=== PATIENT | female | born 1995 | race Caucasian/White ===

== ENCOUNTER 2017-11-16 02:28 | Inpatient (IN) | payer OTHER ==
[~2017-11-16] VITALS: Ht 162.6 cm; Wt 41.7 kg
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
[2017-11-16 03:11] LABS: ABSOLUTE BASOPHIL COUNT 0 /CUMM (0.0-0.2); ABSOLUTE EOSINOPHIL COUNT 0.1 /CUMM (0.0-0.7); ABSOLUTE GRANULOCYTE CT 4.4 /CUMM (1.4-6.5); ABSOLUTE MONOCYTE COUNT 0.7 /CUMM (0.10-0.60); BASOPHIL % 0.4 % (0.0-2.0); EOSINOPHIL % 1.8 % (0-5); GRANULOCYTE % 60.8 % (42.2-75.2); MEAN CORPUSCULAR HGB 31.7 PG (27.0-31.0); MEAN CORPUSCULAR VOLUME 93.3 FL (81.0-99.0); MEAN PLATELET VOLUME 8.6 FL (7.4-10.4); PLATELET COUNT 216 /CUMM (130-400); RBC DISTRIBUTION WIDTH 13.3 % (11.5-14.5); RED BLOOD CELL CT 4.51 /CUMM (4.20-5.40); WHITE BLOOD CELL COUNT 7.2 /CUMM (4.8-10.8)
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
[2017-11-16 05:35] LABS: PT 12.8 SEC (9.4-12.5); PTT 35 SEC (25-37)
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
[2017-11-16] MEDS ORDERED: CLONAZEPAM0.5 M2 PO (06:15)
[2017-11-16] MEDS ORDERED: SUBOXONE 8 MG-1 EACH SL (06:15)
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
[2017-11-16 11:06] VITALS: BP 90/52
[2017-11-16 14:29] VITALS: BP 98/52
[2017-11-16 16:57] VITALS: BP 92/60
[2017-11-16 19:17] VITALS: BP 86/52
[2017-11-16 21:37] VITALS: BP 82/56
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
[2017-11-16 23:08] VITALS: BP 100/64
[2017-11-17 01:10] VITALS: BP 100/60
[2017-11-17 02:47] VITALS: BP 94/60
[2017-11-17 04:47] VITALS: BP 98/58
[2017-11-17 06:37] VITALS: BP 94/60
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
[2017-11-17 09:23] LABS: ABSOLUTE BASOPHIL COUNT 0 /CUMM (0.0-0.2); ABSOLUTE EOSINOPHIL COUNT 0.1 /CUMM (0.0-0.7); ABSOLUTE GRANULOCYTE CT 4.9 /CUMM (1.4-6.5); ABSOLUTE LYMPH COUNT 1.8 /CUMM (1.2-3.4); ABSOLUTE MONOCYTE COUNT 0.8 /CUMM (0.10-0.60); BASOPHIL % 0.4 % (0.0-2.0); EOSINOPHIL % 1.9 % (0-5); GRANULOCYTE % 63.6 % (42.2-75.2); HEMATOCRIT 38.8 % (37-47); MEAN CORPUSCULAR HGB CONC 33.7 G/DL (33.0-37.0); MEAN CORPUSCULAR VOLUME 94.9 FL (81.0-99.0); MEAN PLATELET VOLUME 9.7 FL (7.4-10.4); PLATELET COUNT 158 /CUMM (130-400); RBC DISTRIBUTION WIDTH 13.5 % (11.5-14.5); RED BLOOD CELL CT 4.09 /CUMM (4.20-5.40); WHITE BLOOD CELL COUNT 7.7 /CUMM (4.8-10.8)
[2017-11-17 09:28] LABS: PT 13.8 SEC (9.4-12.5)
--- NOTE | 2017-11-17 12:53 | Incdntl Nt Psy ---
Incidental Note Notation: Pt is deeply unsleep, and unable to participate in an interview. We will see the patient tomorrow.
[2017-11-17 14:31] VITALS: BP 100/64
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
[2017-11-17 21:49] VITALS: BP 94/48
[2017-11-18] VITALS: BP 94/48
[2017-11-18 06:20] VITALS: BP 108/50
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
[2017-11-18 08:45] LABS: ABSOLUTE BASOPHIL COUNT 0 /CUMM (0.0-0.2); ABSOLUTE EOSINOPHIL COUNT 0.2 /CUMM (0.0-0.7); ABSOLUTE GRANULOCYTE CT 3.4 /CUMM (1.4-6.5); ABSOLUTE LYMPH COUNT 1.7 /CUMM (1.2-3.4); ABSOLUTE MONOCYTE COUNT 0.7 /CUMM (0.10-0.60); BASOPHIL % 0.3 % (0.0-2.0); EOSINOPHIL % 3.1 % (0-5); GRANULOCYTE % 57.4 % (42.2-75.2); MEAN CORPUSCULAR HGB 32.3 PG (27.0-31.0); MEAN CORPUSCULAR HGB CONC 34.4 G/DL (33.0-37.0); MEAN CORPUSCULAR VOLUME 93.9 FL (81.0-99.0); MEAN PLATELET VOLUME 10.1 FL (7.4-10.4); RBC DISTRIBUTION WIDTH 13.4 % (11.5-14.5); RED BLOOD CELL CT 4.15 /CUMM (4.20-5.40); WHITE BLOOD CELL COUNT 5.9 /CUMM (4.8-10.8)
[2017-11-18 10:00] VITALS: BP 101/80
[2017-11-18 10:21] LABS: PLATELET COUNT 137 /CUMM (130-400)
[2017-11-18] MEDS ORDERED: VITAMIN B-1100 MG PO ×2 (10:21→13:16)
[2017-11-18] MEDS ORDERED: FOLIC ACID1 M1 PO ×2 (10:21→13:16)
[2017-11-18] MEDS ORDERED: ONDANSETRON ODT4 M1 PO ×2 (10:21→13:16)
[2017-11-18] MEDS ORDERED: ONE DAILY MULT1 EAC2 PO ×2 (10:21→13:16)
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
== END 2017-11-18 14:31 | DRG 773 ==
LOC: ERH 02:28 → ERHI 07:05 → 2NA 07:05 → ENRESERV 09:52 → ENTRNSPT 10:37 → EDTRNSPTSTS 10:49 → EDTRNSPT 10:49 → 2NA 10:51 → CMPTRNSPT 11:06 → ENPENDDIS 11-18 10:30 → ENTRNSPT 11-18 13:45 → EDTRNSPTSTS 11-18 14:24 → EDTRNSPT 11-18 14:24 → CMPTRNSPT 11-18 14:28 → 2NA 11-18 14:31
PROVIDERS: Internal Medicine; Pediatrics; Student in an Organized Health Care Education/Training Program
DX: F10.929 Alcohol use, unspecified with intoxication, unspecified (principal); V47.5XXA Car driver injured in collision with fixed or stationary object in traffic accident, initial encounter; M79.1 Myalgia; R74.0 Nonspecific elevation of levels of transaminase and lactic acid dehydrogenase [LDH]; Y90.6 Blood alcohol level of 120-199 mg/100 ml; F11.20 Opioid dependence, uncomplicated; E87.0 Hyperosmolality and hypernatremia; E86.0 Dehydration; K75.9 Inflammatory liver disease, unspecified; K29.20 Alcoholic gastritis without bleeding; F17.210 Nicotine dependence, cigarettes, uncomplicated; F41.9 Anxiety disorder, unspecified; Z88.1 Allergy status to other antibiotic agents; B19.20 Unspecified viral hepatitis C without hepatic coma; F31.9 Bipolar disorder, unspecified; F91.3 Oppositional defiant disorder; Z91.5 Personal history of self-harm; W22.11XA Striking against or struck by driver side automobile airbag, initial encounter; Y92.410 Unspecified street and highway as the place of occurrence of the external cause
CPT/HCPCS: 2NAP; 36415; 36592; 73560-RT; 73590-RT; 73610-RT; 74176; 80307; 81001; 82436; 93005; 93010; 96360; 99232; G0480; J1650; J2405; J3101; J3490; J7040; J7042

== ENCOUNTER 2017-11-22 09:09 | Inpatient (IN) | payer OTHER ==
[~2017-11-22] VITALS: Ht 162.6 cm; Wt 50.0 kg
[~2017-11-22 09:09] MED LIST: CLONAZEPAM0.5 M2 PO; FOLIC ACID1 M1 PO; ONDANSETRON ODT4 M1 PO; ONE DAILY MULT1 EAC2 PO; SUBOXONE 8 MG-1 EACH SL; VITAMIN B-1100 MG PO
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
[2017-11-22 10:19] LABS: ABSOLUTE BASOPHIL COUNT 0.1 /CUMM (0.0-0.2); ABSOLUTE EOSINOPHIL COUNT 0.2 /CUMM (0.0-0.7); ABSOLUTE GRANULOCYTE CT 3.2 /CUMM (1.4-6.5); ABSOLUTE MONOCYTE COUNT 0.7 /CUMM (0.10-0.60); BASOPHIL % 0.9 % (0.0-2.0); GRANULOCYTE % 51.4 % (42.2-75.2); HEMATOCRIT 43.7 % (37-47); MEAN CORPUSCULAR HGB 31.8 PG (27.0-31.0); MEAN CORPUSCULAR HGB CONC 33.2 G/DL (33.0-37.0); MEAN CORPUSCULAR VOLUME 95.7 FL (81.0-99.0); MEAN PLATELET VOLUME 9.1 FL (7.4-10.4); RBC DISTRIBUTION WIDTH 13.9 % (11.5-14.5); RED BLOOD CELL CT 4.57 /CUMM (4.20-5.40); WHITE BLOOD CELL COUNT 6.2 /CUMM (4.8-10.8)
[2017-11-22 10:41] LABS: PLATELET COUNT 238 /CUMM (130-400)
--- NOTE | 2017-11-22 11:31 | CT SCAN REPORT ---
EXAMINATION: CT ABDOMEN AND PELVIS WITH CONTRAST CLINICAL INFORMATION: Right abdominal pain with rebound tenderness and guarding. COMPARISON: None TECHNIQUE: Multidetector volumetric imaging was performed of the abdomen and pelvis following IV administration of 65 mL of Optiray 350 intravenous contrast. Sagittal and coronal reformatted images were obtained on the technologist's workstation. DLP: 267.20 mGy-cm FINDINGS: LUNG BASES: The visualized lung bases are unremarkable. LIVER, GALLBLADDER, AND BILIARY TREE: The liver is normal in size, shape, and attenuation. No focal hepatic lesion or biliary ductal dilatation is present. The gallbladder is contracted, with no evidence of radiopaque gallstones, gallbladder wall thickening or obvious pericholecystic inflammatory changes. PANCREAS: Unremarkable. SPLEEN: Unremarkable, with a longitudinal span in the coronal plane of 10.7 cm (602:44) ADRENAL GLANDS: Unremarkable. KIDNEYS AND URETERS: The kidneys are normal in size, shape, and attenuation. No hydronephrosis, hydroureter, or calculi seen. No perinephric stranding. BLADDER: Decompressed and otherwise unremarkable. GASTROINTESTINAL TRACT: The small and large bowel are unremarkable. There is no obstruction, free intraperitoneal air or abscess. The vermiform appendix is suboptimally visualized, without finding to suggest appendicitis (3:510 through 543). No focal bowel wall thickening is seen. There is no significant diverticulosis or diverticulitis seen. ABDOMINAL WALL: No significant hernia is appreciated. LYMPH NODES: Normal. VASCULAR: Unremarkable. PELVIC VISCERA: The uterus and adnexa are unremarkable. Question tampon within the vaginal vault. OSSEOUS STRUCTURES: Unremarkable. IMPRESSION: Unremarkable examination, without obstruction, free intraperitoneal air or abscess seen. There is no appendicitis or diverticulitis seen. No urinary calculus or hydronephroureter is seen. There is no abdominopelvic mass, free fluid or lymphadenopathy.
[2017-11-22 12:44] LABS: PT 12.4 SEC (9.4-12.5); PTT 32 SEC (25-37)
[2017-11-22 14:00] VITALS: BP 126/80
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
--- NOTE | 2017-11-22 14:54 | Admission Certification ---
Admission Certification Certification Statement - As attending physician, I certify that at the time of - admission, based on clinical presentation, severity of - symptoms, need for further diagnostic testing and - therapeutic interventions, and risk of adverse outcomes - without in-hospital treatment, in my clinical assessment, - this patient requires an acute hospital stay for a minimum - of two nights or longer. I have also considered psychsocial - factors such as support system, advanced age, financial - issues, cognitive issues, and failed out-patient treatments, - past re-admission history, safety of patient, and lack of - compliance as applicable. Specific rationale supporting this admission is: Patient will require hospitalization for further management of her acute hepatitis.
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
[2017-11-22 20:00] VITALS: BP 105/65
[2017-11-23] VITALS (9 sets, daily range): BP systolic 94–122; BP diastolic 50–84
[2017-11-23 04:46] LABS: ABSOLUTE BASOPHIL COUNT 0.2 /CUMM (0.0-0.2); ABSOLUTE EOSINOPHIL COUNT 0.2 /CUMM (0.0-0.7); ABSOLUTE GRANULOCYTE CT 3.3 /CUMM (1.4-6.5); ABSOLUTE LYMPH COUNT 2.5 /CUMM (1.2-3.4); ABSOLUTE MONOCYTE COUNT 0.7 /CUMM (0.10-0.60); BASOPHIL % 2.6 % (0.0-2.0); EOSINOPHIL % 3.3 % (0-5); GRANULOCYTE % 47.9 % (42.2-75.2); HEMATOCRIT 39.7 % (37-47); MEAN CORPUSCULAR HGB 31.6 PG (27.0-31.0); MEAN CORPUSCULAR HGB CONC 33.1 G/DL (33.0-37.0); MEAN CORPUSCULAR VOLUME 95.4 FL (81.0-99.0); MEAN PLATELET VOLUME 10.7 FL (7.4-10.4); PLATELET COUNT 148 /CUMM (130-400); RBC DISTRIBUTION WIDTH 13.9 % (11.5-14.5); RED BLOOD CELL CT 4.16 /CUMM (4.20-5.40); WHITE BLOOD CELL COUNT 6.9 /CUMM (4.8-10.8)
[2017-11-23 04:50] LABS: PT 14.8 SEC (9.4-12.5)
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
--- NOTE | 2017-11-23 13:56 | PN- Gastroenterology ---
Assessment/Plan GI Assessment/Recommendations: ASSESSMENT: 1. History of Substance Abuse 2. Acute Liver Injury -- ? Tylenol Toxicity in the setting of alcohol abuse, ? DILI due to Suboxone 3. Elevated Transaminases -- ? etiology due due tylenol, suboxone, ? element of shock liver, but no documented hypotension 4. History of Alcohol Abuse 5. Coagulopathy RECOMMENDATIONS: 1. Would continue N-acetylcysteine up to 72 hours at reduced dose since coags are trending upwards 2. Continue to hold suboxone 3. Regular diet 4. If change in mental status or persistent increasing PT-INR will consider transfer to [facility] Subjective Subjective: Patient is fatigued. She has had no change in her sleep wake cycle. She reports no diminution in her motor skills. She denies nausea vomiting although she does have some mild diffuse upper abdominal discomfort. Objective Vital Signs and I&Os Vital Signs Date Time Temp Pulse Resp B/P B/P Pulse O2 O2 Flow FiO2 Mean Ox Delivery Rate 11/23 1200 97.6 60 20 100/50 11/23 0800 97.1 56 15 94/60 97 Room Air 11/23 0600 60 16 110/61 11/23 0400 52 18 104/60 11/23 0400 98 Room Air 11/23 0200 48 20 103/58 11/23 0000 9.0 67 16 100/53 11/23 0000 98 Room Air 11/23 0000 97.0 67 16 100/53 98 Room Air 11/22 2000 97.8 58 24 105/65 11/22 1400 98.7 68 11 126/80 99 Room Air 11/22 1352 97.7 62 18 105/62 98 Room Air Intake & Output 11/23 1600 11/23 0400 11/22 1600 11/22 0400 11/21 1600 11/21 0400 Intake Total 1277 1628 250 Output Total 1075 1400 0 Balance 202 228 250 Intake, IV 1227 1508 250 Intake, Oral 50 120 0 Number 0 0 Bowel Movements Output, Urine 1075 1400 0 Patient 91 lb 15.98 oz 92 lb Weight Weight Reported by Patient Measurement Method Physical Exam General Appearance: no apparent distress, alert, awake Cardiovascular: regular rate/rhythm Abdomen: normal bowel sounds, soft, non-tender, no organomegaly Neurologic/Psychiatric: no motor/sensory deficits, alert, oriented x 3 Current Medications: Current Medications Sig/Ravinder Start time Last Medication Dose Route Stop Time Status Admin Acetylcysteine 4,173 MG ONCE ONE 11/22 1800 DC 11/22 Dextrose/Water 1,000 ML IV 11/23 1020 1910 Acetylcysteine 2,086.5 MG ONCE ONE 11/22 1400 DC 11/22 Dextrose/Water 500 ML IV 11/22 1804 1420 Buprenorphine/ 1 TAB BID 11/22 2100 CAN Naloxone SL Clonazepam 0.5 MG TID 11/22 2100 AC 11/23 PO 11/29 205 1300 Enoxaparin Sodium 40 MG DAILY 11/23 0900 CAN SC Folic Acid 1 MG DAILY 11/23 0900 AC 11/23 PO 0831 Heparin Sodium 5,000 UNIT Q8 11/22 1522 AC (Porcine) SC Multivitamins 1 TAB DAILY 11/23 09 AC 11/23 PO 0831 Nicotine 21 MG Q24 11/23 0900 AC 11/23 TOP 1017 Sodium Chloride 1,000 ML Q10H 11/22 1530 DC 11/23 IV 11/23 1129 0155 Thiamine HCl 100 MG DAILY 11/23 0900 AC 11/23 PO 0831 Tramadol HCl 50 MG ONCE ONE 11/23 0200 DC 11/23 PO 11/23 0201 0153 Tramadol HCl 50 MG ONCE ONE 11/22 2030 DC 11/22 PO 11/22 203 203 Tramadol HCl 50 MG ONCE ONE 11/22 1500 DC 11/22 PO 11/22 1501 1519 Results Pertinent Lab Results: Laboratory Tests 11/23 11/23 0355 0355 Chemistry Sodium (137 - 145 mmol/L) 140 Potassium (3.5 - 5.1 mmol/L) 3.7 Chloride (98 - 107 mmol/L) 110 H Carbon Dioxide (22 - 30 mmol/L) 24 Anion Gap (5 - 16) 6 BUN (7 - 17 mg/dL) 3 L Creatinine (0.5 - 1.0 mg/dL) 0.4 L Estimated GFR (>60 ml/min) > 60 Glucose (65 - 99 mg/dL) 98 Calcium (8.4 - 10.2 mg/dL) 8.9 Phosphorus (2.5 - 4.5 mg/dL) 3.8 Magnesium (1.6 - 2.3 mg/dL) 1.7 Total Bilirubin (0.2 - 1.3 mg/dL) 2.8 H AST (14 - 36 U/L) 699 H ALT (9 - 52 U/L) 1104 H Albumin (3.5 - 5.0 g/dL) 3.0 L Coagulation PT (9.4 - 12.5 SEC) 14.8 H INR (0.90 - 1.19) 1.35 H Hematology CBC w Diff NO MAN DIFF REQ WBC (4.8 - 10.8 /CUMM) 6.9 RBC (4.20 - 5.40 /CUMM) 4.16 L Hgb (12.0 - 16.0 G/DL) 13.1 Hct (37 - 47 %) 39.7 MCV (81.0 - 99.0 FL) 95.4 MCH (27.0 - 31.0 PG) 31.6 H MCHC (33.0 - 37.0 G/DL) 33.1 RDW (11.5 - 14.5 %) 13.9 Plt Count (130 - 400 /CUMM) 148 MPV (7.4 - 10.4 FL) 10.7 H Gran % (42.2 - 75.2 %) 47.9 Lymphocytes % (20.5 - 51.1 %) 35.8 Monocytes % (1.7 - 9.3 %) 10.4 H Eosinophils % (0 - 5 %) 3.3 Basophils % (0.0 - 2.0 %) 2.6 H Absolute Granulocytes (1.4 - 6.5 /CUMM) 3.3 Absolute Lymphocytes (1.2 - 3.4 /CUMM) 2.5 Absolute Monocytes (0.10 - 0.60 /CUMM) 0.7 H Absolute Eosinophils (0.0 - 0.7 /CUMM) 0.2 Absolute Basophils (0.0 - 0.2 /CUMM) 0.2 Immunology IMTIAZ Titer ND Anti-Nuclear Antibody (NEG,1:40) NEG 1:40 IFA ASSAY Anti-Smooth Muscle Ab Pending Serology HCV RNA (PCR) IUs/ml Pending HCV RNA PCR log IUs/ml Pending 11/22 11/22 1018 1010 Chemistry Total Beta HCG Cancelled Toxicology Urine Opiates Screen (>2000 NG/ML) < 100 Methadone Screen (>300 NG/ML) < 40 Barbiturate Screen (>200 NG/ML) < 60 Ur Phencyclidine Scrn (>25 NG/ML) < 6.00 Amphetamines Screen (>1000 NG/ML) < 100 U Benzodiazepines Scrn (>200 NG/ML) 123 Urine Cocaine Screen (>300 NG/ML) < 50 Urine Cannabis Screen (>50 NG/ML) > 80.00 H Urines Urinalysis MANY H Urine Color (YEL,AMB,STR) ESTELLA Urine Clarity (CLEAR) HAZY H Urine pH (5.0 - 8.0) 7.0 Ur Specific [place] (1.001 - 1.035) 1.020 Urine Protein (NEG,<30 MG/DL) NEG Urine Ketones (NEG) NEG Urine Nitrite (NEG) NEG Urine Bilirubin (NEG) POS@ICTO H Urine Urobilinogen (0.1 - 1.0 EU/dl) 4.0 H Ur Leukocyte Esterase (NEG) NEG Ur Microscopic SEDIMENT EXAMINED Urine RBC (0 - 5 /HPF) RARE Urine WBC (0 - 2 /HPF) RARE Ur Epithelial Cells (NONE,FEW) RARE Urine Mucus (FEW,NONE) RARE Urine Hemoglobin (NEG) NEG Urine Glucose (N MG/DL) NEG 11/22 1010 Chemistry Sodium (137 - 145 mmol/L) 144 Potassium (3.5 - 5.1 mmol/L) 4.1 Chloride (98 - 107 mmol/L) 103 Carbon Dioxide (22 - 30 mmol/L) 30 Anion Gap (5 - 16) 11 BUN (7 - 17 mg/dL) 8 Creatinine (0.5 - 1.0 mg/dL) 0.7 Estimated GFR (>60 ml/min) > 60 BUN/Creatinine Ratio (7 - 25 %) 11.4 Glucose (65 - 99 mg/dL) 96 Calcium (8.4 - 10.2 mg/dL) 9.4 Total Bilirubin (0.2 - 1.3 mg/dL) 2.8 H AST (14 - 36 U/L) 957 H ALT (9 - 52 U/L) 1359 H Alkaline Phosphatase (<127 U/L) 124 Creatine Kinase (30 - 135 U/L) 42 Total Protein (6.3 - 8.2 g/dL) 6.5 Albumin (3.5 - 5.0 g/dL) 3.8 Globulin (1.9 - 4.2 gm/dL) 2.7 Albumin/Globulin Ratio (1.1 - 2.2 %) 1.4 Lipase (23 - 300 U/L) 94 Total Beta HCG (NEGATIVE) NEGATIVE Coagulation PT (9.4 - 12.5 SEC) 12.4 INR (0.90 - 1.19) 1.14 APTT (25 - 37 SEC) 32 Hematology CBC w Diff NO MAN DIFF REQ WBC (4.8 - 10.8 /CUMM) 6.2 RBC (4.20 - 5.40 /CUMM) 4.57 Hgb (12.0 - 16.0 G/DL) 14.5 Hct (37 - 47 %) 43.7 MCV (81.0 - 99.0 FL) 95.7 MCH (27.0 - 31.0 PG) 31.8 H MCHC (33.0 - 37.0 G/DL) 33.2 RDW (11.5 - 14.5 %) 13.9 Plt Count (130 - 400 /CUMM) 238 MPV (7.4 - 10.4 FL) 9.1 Gran % (42.2 - 75.2 %) 51.4 Lymphocytes % (20.5 - 51.1 %) 32.4 Monocytes % (1.7 - 9.3 %) 11.3 H Eosinophils % (0 - 5 %) 4.0 Basophils % (0.0 - 2.0 %) 0.9 Absolute Granulocytes (1.4 - 6.5 /CUMM) 3.2 Absolute Lymphocytes (1.2 - 3.4 /CUMM) 2.0 Absolute Monocytes (0.10 - 0.60 /CUMM) 0.7 H Absolute Eosinophils (0.0 - 0.7 /CUMM) 0.2 Absolute Basophils (0.0 - 0.2 /CUMM) 0.1 Toxicology Acetaminophen (10.0 - 30.0 ug/mL) < 10.0 L Serum Alcohol (<10 MG/DL) < 10.0
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
[2017-11-24 06:00] VITALS: BP 110/68
[2017-11-24 07:05] VITALS: BP 100/54
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
[2017-11-24 07:59] LABS: ABSOLUTE BASOPHIL COUNT 0.1 /CUMM (0.0-0.2); ABSOLUTE EOSINOPHIL COUNT 0.2 /CUMM (0.0-0.7); ABSOLUTE GRANULOCYTE CT 3.6 /CUMM (1.4-6.5); ABSOLUTE LYMPH COUNT 2.2 /CUMM (1.2-3.4); ABSOLUTE MONOCYTE COUNT 0.7 /CUMM (0.10-0.60); BASOPHIL % 0.8 % (0.0-2.0); GRANULOCYTE % 53.7 % (42.2-75.2); HEMATOCRIT 41.7 % (37-47); MEAN CORPUSCULAR HGB 31.4 PG (27.0-31.0); MEAN CORPUSCULAR VOLUME 95.1 FL (81.0-99.0); MEAN PLATELET VOLUME 10.3 FL (7.4-10.4); PLATELET COUNT 185 /CUMM (130-400); RBC DISTRIBUTION WIDTH 13.9 % (11.5-14.5); RED BLOOD CELL CT 4.38 /CUMM (4.20-5.40); WHITE BLOOD CELL COUNT 6.7 /CUMM (4.8-10.8)
[2017-11-24 08:56] LABS: PT 14.6 SEC (9.4-12.5)
--- NOTE | 2017-11-24 11:37 | PN- Student ---
Alina Salazar 11/24/17 1112: Subjective Subjective: Pt is a 22yo F who presented to ED with pain in abdomen and a psych consult was requested. Pt reports that she "wants to go home." Pt has a history of cutting, November 2016, due to a fight with her girlfriend. Pt noted today that she has some thoughts of hurting herself when upset. Notes that she is currently seeing Dr. Reyes in [place] since Apr 2017. She was previously at [facility] in May 2017 for substance abuse treatment. Notes past heroin use, started in 2016, stopped 3 months ago, with daily use of 2-3 bundles; past cocaine use started in 2016, stopped a year ago, daily use of unspecified "less" amount; past crack cocaine use started in 2016, stopped 3 months ago, daily use of $400 value. Pt's father had a suicide attempt following divorce, with a hx of depression and anxiety. Pt 's mother has a hx of depression and anxiety. Pt's sister has a hx of depression , anxiety, and bipolar. Pt has 4 brothers she notes as "fine". Paternal grandmother had schizophrenia. Pt currently lives in [place] with her mother. Supports include mother and girlfriend, however reports fighting with her girlfriend a lot. Pt "dropped out 6 months away from finishing" high school. 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 Pt has 2 prior arrests from last year, 1 for assault, trespassing, and assault with a deadly weapon, the other [place] because "boys were making kissy faces". Patient is alert, cooperative, and oriented to person, place, and time. She appeared tired and restless, fidgeting under her blanket, but was attentive during the interview. Behavior was appropriate for the situation. Speech was normal rate, quiet volume. Patient showed poor insight and judgment, and reported SI, wanting to hurt herself because she wants to go home. Her affect was congruent with her mood. She reports mood as "sad". Denies HI, AH/VH, delusions, paranoia. Reports sad mood 9/10, anxiety 10/10, depression 8/10 (with 10 as most severe). Feels hopeless, helpless, worthless, and somewhat guilty. Reports "no sleep", which is her usual depending on her mood. Describes appetite as "poor" and energy as "low." Patient was interested in outpatient services and a rehab program for substance and alcohol abuse. Objective Objective: Current Medications Sig/Ravinder Start time Last Medication Dose Route Stop Time Status Admin Acetylcysteine 6,000 MG Q24H 11/23 1500 AC 11/23 Dextrose/Water 1,000 ML IV 11/25 1459 1653 Clonazepam 0.5 MG TID 11/22 2100 AC 11/24 PO 11/299 0947 Folic Acid 1 MG DAILY 11/23 09 AC 11/24 PO 0947 Gabapentin 300 MG Q8 11/24 0836 AC PO Heparin Sodium 5,000 UNIT Q8 11/22 1522 AC (Porcine) SC Morphine Sulfate 1 MG ONCE ONE 11/23 1630 DC 11/23 IV 11/23 1631 1625 Multivitamins 1 TAB DAILY 11/23 09 AC 11/24 PO 0946 Nicotine 21 MG Q24 11/23 09 AC 11/24 TOP 0947 Thiamine HCl 100 MG DAILY 11/23 0900 AC 11/24 PO 0947 Tramadol HCl 50 MG ONCE ONE 11/23 2315 DC 11/23 PO 11/23 2316 2315 Laboratory Tests 11/24 11/23 0650 0355 Chemistry Sodium (137 - 145 mmol/L) 142 Potassium (3.5 - 5.1 mmol/L) 3.5 Chloride (98 - 107 mmol/L) 105 Carbon Dioxide (22 - 30 mmol/L) 26 Anion Gap (5 - 16) 11 BUN (7 - 17 mg/dL) 6 L Creatinine (0.5 - 1.0 mg/dL) 0.5 Estimated GFR (>60 ml/min) > 60 BUN/Creatinine Ratio (7 - 25 %) 12.0 Phosphorus (2.5 - 4.5 mg/dL) 4.7 H Magnesium (1.6 - 2.3 mg/dL) 1.8 Total Bilirubin (0.2 - 1.3 mg/dL) 3.5 H Direct Bilirubin (< 0.4 mg/dL) 2.6 H AST (14 - 36 U/L) 768 H ALT (9 - 52 U/L) 1235 H Alkaline Phosphatase (<127 U/L) 114 Total Protein (6.3 - 8.2 g/dL) 6.1 L Albumin (3.5 - 5.0 g/dL) 3.4 L Coagulation PT (9.4 - 12.5 SEC) 14.6 H INR (0.90 - 1.19) 1.34 H Hematology CBC w Diff NO MAN DIFF REQ WBC (4.8 - 10.8 /CUMM) 6.7 RBC (4.20 - 5.40 /CUMM) 4.38 Hgb (12.0 - 16.0 G/DL) 13.8 Hct (37 - 47 %) 41.7 MCV (81.0 - 99.0 FL) 95.1 MCH (27.0 - 31.0 PG) 31.4 H MCHC (33.0 - 37.0 G/DL) 33.0 RDW (11.5 - 14.5 %) 13.9 Plt Count (130 - 400 /CUMM) 185 MPV (7.4 - 10.4 FL) 10.3 Gran % (42.2 - 75.2 %) 53.7 Lymphocytes % (20.5 - 51.1 %) 32.8 Monocytes % (1.7 - 9.3 %) 9.7 H Eosinophils % (0 - 5 %) 3.0 Basophils % (0.0 - 2.0 %) 0.8 Absolute Granulocytes (1.4 - 6.5 /CUMM) 3.6 Absolute Lymphocytes (1.2 - 3.4 /CUMM) 2.2 Absolute Monocytes (0.10 - 0.60 /CUMM) 0.7 H Absolute Eosinophils (0.0 - 0.7 /CUMM) 0.2 Absolute Basophils (0.0 - 0.2 /CUMM) 0.1 Immunology Anti-Smooth Muscle Ab Pending 11/23 0375 Chemistry Sodium (137 - 145 mmol/L) 140 Potassium (3.5 - 5.1 mmol/L) 3.7 Chloride (98 - 107 mmol/L) 110 H Carbon Dioxide (22 - 30 mmol/L) 24 Anion Gap (5 - 16) 6 BUN (7 - 17 mg/dL) 3 L Creatinine (0.5 - 1.0 mg/dL) 0.4 L Estimated GFR (>60 ml/min) > 60 Glucose (65 - 99 mg/dL) 98 Calcium (8.4 - 10.2 mg/dL) 8.9 Phosphorus (2.5 - 4.5 mg/dL) 3.8 Magnesium (1.6 - 2.3 mg/dL) 1.7 Total Bilirubin (0.2 - 1.3 mg/dL) 2.8 H AST (14 - 36 U/L) 699 H ALT (9 - 52 U/L) 1104 H Albumin (3.5 - 5.0 g/dL) 3.0 L Coagulation PT (9.4 - 12.5 SEC) 14.8 H INR (0.90 - 1.19) 1.35 H Hematology CBC w Diff NO MAN DIFF REQ WBC (4.8 - 10.8 /CUMM) 6.9 RBC (4.20 - 5.40 /CUMM) 4.16 L Hgb (12.0 - 16.0 G/DL) 13.1 Hct (37 - 47 %) 39.7 MCV (81.0 - 99.0 FL) 95.4 MCH (27.0 - 31.0 PG) 31.6 H MCHC (33.0 - 37.0 G/DL) 33.1 RDW (11.5 - 14.5 %) 13.9 Plt Count (130 - 400 /CUMM) 148 MPV (7.4 - 10.4 FL) 10.7 H Gran % (42.2 - 75.2 %) 47.9 Lymphocytes % (20.5 - 51.1 %) 35.8 Monocytes % (1.7 - 9.3 %) 10.4 H Eosinophils % (0 - 5 %) 3.3 Basophils % (0.0 - 2.0 %) 2.6 H Absolute Granulocytes (1.4 - 6.5 /CUMM) 3.3 Absolute Lymphocytes (1.2 - 3.4 /CUMM) 2.5 Absolute Monocytes (0.10 - 0.60 /CUMM) 0.7 H Absolute Eosinophils (0.0 - 0.7 /CUMM) 0.2 Absolute Basophils (0.0 - 0.2 /CUMM) 0.2 Immunology IMTIAZ Titer ND Anti-Nuclear Antibody (NEG,1:40) NEG 1:40 IFA ASSAY Serology HCV RNA (PCR) IUs/ml Pending HCV RNA PCR log IUs/ml Pending 11/22 11/22 1018 1010 Chemistry Total Beta HCG Cancelled Toxicology Urine Opiates Screen (>2000 NG/ML) < 100 Methadone Screen (>300 NG/ML) < 40 Barbiturate Screen (>200 NG/ML) < 60 Ur Phencyclidine Scrn (>25 NG/ML) < 6.00 Amphetamines Screen (>1000 NG/ML) < 100 U Benzodiazepines Scrn (>200 NG/ML) 123 Urine Cocaine Screen (>300 NG/ML) < 50 Urine Cannabis Screen (>50 NG/ML) > 80.00 H Urines Urinalysis MANY H Urine Color (YEL,AMB,STR) ESTELLA Urine Clarity (CLEAR) HAZY H Urine pH (5.0 - 8.0) 7.0 Ur Specific [place] (1.001 - 1.035) 1.020 Urine Protein (NEG,<30 MG/DL) NEG Urine Ketones (NEG) NEG Urine Nitrite (NEG) NEG Urine Bilirubin (NEG) POS@ICTO H Urine Urobilinogen (0.1 - 1.0 EU/dl) 4.0 H Ur Leukocyte Esterase (NEG) NEG Ur Microscopic SEDIMENT EXAMINED Urine RBC (0 - 5 /HPF) RARE Urine WBC (0 - 2 /HPF) RARE Ur Epithelial Cells (NONE,FEW) RARE Urine Mucus (FEW,NONE) RARE Urine Hemoglobin (NEG) NEG Urine Glucose (N MG/DL) NEG 11/22 1010 Chemistry Sodium (137 - 145 mmol/L) 144 Potassium (3.5 - 5.1 mmol/L) 4.1 Chloride (98 - 107 mmol/L) 103 Carbon Dioxide (22 - 30 mmol/L) 30 Anion Gap (5 - 16) 11 BUN (7 - 17 mg/dL) 8 Creatinine (0.5 - 1.0 mg/dL) 0.7 Estimated GFR (>60 ml/min) > 60 BUN/Creatinine Ratio (7 - 25 %) 11.4 Glucose (65 - 99 mg/dL) 96 Calcium (8.4 - 10.2 mg/dL) 9.4 Total Bilirubin (0.2 - 1.3 mg/dL) 2.8 H AST (14 - 36 U/L) 957 H ALT (9 - 52 U/L) 1359 H Alkaline Phosphatase (<127 U/L) 124 Creatine Kinase (30 - 135 U/L) 42 Total Protein (6.3 - 8.2 g/dL) 6.5 Albumin (3.5 - 5.0 g/dL) 3.8 Globulin (1.9 - 4.2 gm/dL) 2.7 Albumin/Globulin Ratio (1.1 - 2.2 %) 1.4 Lipase (23 - 300 U/L) 94 Total Beta HCG (NEGATIVE) NEGATIVE Coagulation PT (9.4 - 12.5 SEC) 12.4 INR (0.90 - 1.19) 1.14 APTT (25 - 37 SEC) 32 Hematology CBC w Diff NO MAN DIFF REQ WBC (4.8 - 10.8 /CUMM) 6.2 RBC (4.20 - 5.40 /CUMM) 4.57 Hgb (12.0 - 16.0 G/DL) 14.5 Hct (37 - 47 %) 43.7 MCV (81.0 - 99.0 FL) 95.7 MCH (27.0 - 31.0 PG) 31.8 H MCHC (33.0 - 37.0 G/DL) 33.2 RDW (11.5 - 14.5 %) 13.9 Plt Count (130 - 400 /CUMM) 238 MPV (7.4 - 10.4 FL) 9.1 Gran % (42.2 - 75.2 %) 51.4 Lymphocytes % (20.5 - 51.1 %) 32.4 Monocytes % (1.7 - 9.3 %) 11.3 H Eosinophils % (0 - 5 %) 4.0 Basophils % (0.0 - 2.0 %) 0.9 Absolute Granulocytes (1.4 - 6.5 /CUMM) 3.2 Absolute Lymphocytes (1.2 - 3.4 /CUMM) 2.0 Absolute Monocytes (0.10 - 0.60 /CUMM) 0.7 H Absolute Eosinophils (0.0 - 0.7 /CUMM) 0.2 Absolute Basophils (0.0 - 0.2 /CUMM) 0.1 Toxicology Acetaminophen (10.0 - 30.0 ug/mL) < 10.0 L Serum Alcohol (<10 MG/DL) < 10.0 Results Results: Laboratory Tests 11/24/17 0650: Anion Gap 11, Estimated GFR > 60, BUN/Creatinine Ratio 12.0, Phosphorus 4.7 H, Magnesium 1.8, Total Bilirubin 3.5 H, Direct Bilirubin 2.6 H, AST 768 H, ALT 1235 H, Alkaline Phosphatase 114, Total Protein 6.1 L, Albumin 3.4 L, PT 14.6 H, INR 1.34 H, CBC w Diff NO MAN DIFF REQ, RBC 4.38, MCV 95.1, MCH 31.4 H, MCHC 33.0, RDW 13.9, MPV 10.3, Gran % 53.7, Lymphocytes % 32.8, Monocytes % 9.7 H, Eosinophils % 3.0, Basophils % 0.8, Absolute Granulocytes 3.6, Absolute Lymphocytes 2.2, Absolute Monocytes 0.7 H, Absolute Eosinophils 0.2, Absolute Basophils 0.1 11/23/17 035: Anti-Smooth Muscle Ab Pending 11/23/17 035: Anion Gap 6, Estimated GFR > 60, Glucose 98, Calcium 8.9, Phosphorus 3.8, Magnesium 1.7, Total Bilirubin 2.8 H, AST 699 H, ALT 1104 H, Albumin 3.0 L, PT 14.8 H, INR 1.35 H, CBC w Diff NO MAN DIFF REQ, RBC 4.16 L, MCV 95.4, MCH 31.6 H, MCHC 33.1, RDW 13.9, MPV 10.7 H, Gran % 47.9, Lymphocytes % 35.8, Monocytes % 10.4 H, Eosinophils % 3.3, Basophils % 2.6 H, Absolute Granulocytes 3.3, Absolute Lymphocytes 2.5, Absolute Monocytes 0.7 H, Absolute Eosinophils 0.2, Absolute Basophils 0.2, IMTIAZ Titer ND, Anti-Nuclear Antibody NEG 1:40 IFA ASSAY, HCV RNA (PCR) IUs/ml Pending, HCV RNA PCR log IUs/ml Pending 11/22/17 1018: Urine Opiates Screen < 100, Methadone Screen < 40, Barbiturate Screen < 60, Ur Phencyclidine Scrn < 6.00, Amphetamines Screen < 100, U Benzodiazepines Scrn 123 , Urine Cocaine Screen < 50, Urine Cannabis Screen > 80.00 H, Urinalysis MANY H, Urine Color ESTELLA, Urine Clarity HAZY H, Urine pH 7.0, Ur Specific [place] 1.020, Urine Protein NEG, Urine Ketones NEG, Urine Nitrite NEG, Urine Bilirubin POS@ICTO H, Urine Urobilinogen 4.0 H, Ur Leukocyte Esterase NEG, Ur Microscopic SEDIMENT EXAMINED, Urine RBC RARE, Urine WBC RARE, Ur Epithelial Cells RARE, Urine Mucus RARE, Urine Hemoglobin NEG, Urine Glucose NEG 11/22/17 1010: Total Beta HCG Cancelled 11/22/17 1010: Anion Gap 11, Estimated GFR > 60, BUN/Creatinine Ratio 11.4, Glucose 96, Calcium 9.4, Total Bilirubin 2.8 H, AST 957 H, ALT 1359 H, Alkaline Phosphatase 124, Creatine Kinase 42, Total Protein 6.5, Albumin 3.8, Globulin 2.7, Albumin/ Globulin Ratio 1.4, Lipase 94, Total Beta HCG NEGATIVE, PT 12.4, INR 1.14, APTT 32, CBC w Diff NO MAN DIFF REQ, RBC 4.57, MCV 95.7, MCH 31.8 H, MCHC 33.2, RDW 13.9, MPV 9.1, Gran % 51.4, Lymphocytes % 32.4, Monocytes % 11.3 H, Eosinophils % 4.0, Basophils % 0.9, Absolute Granulocytes 3.2, Absolute Lymphocytes 2.0, Absolute Monocytes 0.7 H, Absolute Eosinophils 0.2, Absolute Basophils 0.1, Acetaminophen < 10.0 L, Serum Alcohol < 10.0 Microbiology 11/22 145 UPPER RESP: Surveillance Culture - COMP 11/22 1449 GI: Surveillance Culture - COMP Assessment/Plan Assessment: Pt is a 22 yo female with abdominal pain, depression, and anxiety, with a history of substance abuse and SI, with 1 episode of cutting. Pt reports wanting to hurt self, but not kill self because she wants to be discharged. Pt was calm and cooperative. Pt was alert, but tired, and Ox3. Denies HI, AH,VH, no delusions or paranoia. Plan: Pt is interested in aftercare, including mental health and substance use, and would like to continue to discuss the possibilities with social work for inpatient rehab vs. outpatient services.
[2017-11-24 12:42] VITALS: BP 110/62
[2017-11-24 14:11] VITALS: BP 98/62
[2017-11-24 16:17] VITALS: BP 92/44
--- NOTE | 2017-11-24 16:40 | PN- Gastroenterology ---
Assessment/Plan GI Assessment/Recommendations: ASSESSMENT: 1. History of Substance Abuse 2. Acute Liver Injury -- ? Tylenol Toxicity in the setting of alcohol abuse, ? DILI due to Suboxone 3. Elevated Transaminases -- ? etiology due due tylenol, suboxone, ? element of shock liver, but no documented hypotension 4. History of Alcohol Abuse 5. Coagulopathy RECOMMENDATIONS: 1. Would continue N-acetylcysteine up to 72 hours at reduced dose since coags are not trending downwards 2. Continue to hold suboxone 3. Regular diet 4. If change in mental status or persistent increasing PT-INR will consider transfer to [facility] 5. Discussed with patient that if there is no change in level of transaminitis would consider liver biopsy for further elucidation 6. Would check anti-LKM to rule out autoimmune hepatitis, ceruloplasmin to rule out Jung's, alpha-1 antitrypsin, hepatitis E antibody as well as iron studies to rule out other inherited, autoimmune and infectious causes of acute liver failure. Subjective Subjective: Patient doing well. No nausea vomiting or abdominal pain. No melena nor bright red blood per rectum. Objective Vital Signs and I&Os Vital Signs Date Time Temp Pulse Resp B/P B/P Pulse O2 O2 Flow FiO2 Mean Ox Delivery Rate 11/24 1617 97.9 62 18 92/44 96 Room Air 11/24 1411 97.9 51 20 98/62 96 Room Air 11/24 1242 98.7 58 18 110/62 98 Room Air 11/24 0705 97.5 56 12 100/54 98 Room Air 11/24 0600 98.2 72 16 110/68 11/23 2159 Room Air 11/23 2149 98.2 69 21 116/84 97 11/23 2000 97.8 61 18 122/60 Intake & Output 11/24 1600 11/24 0400 11/23 1600 11/23 0400 11/22 1600 11/22 0400 Intake Total 1168 41 3277 1628 250 Output Total 300 3075 1400 0 Balance 1168 -259 202 228 250 Intake, IV 946 01 7269 1508 250 Intake, Oral 540 850 120 0 Number 0 0 Bowel Movements Output, Urine 300 3075 1400 0 Patient 101 lb 91 lb 15.98 oz 92 lb Weight Weight Reported by Patient Measurement Method Physical Exam General Appearance: alert, awake, comfortable Respiratory: lungs clear Cardiovascular: regular rate/rhythm Abdomen: normal bowel sounds, soft, non-tender Neurologic/Psychiatric: no motor/sensory deficits, alert, oriented x 3, normal mood/affect Skin: jaundice Current Medications: Current Medications Sig/Ravinder Start time Last Medication Dose Route Stop Time Status Admin Acetylcysteine 6,000 MG Q24H 11/23 1500 AC 11/24 Dextrose/Water 1,000 ML IV 11/25 1459 1612 Buprenorphine/ 1 TAB ONCE ONE 11/24 1230 DC 11/24 Naloxone SL 11/24 1231 1240 Clonazepam 0.5 MG BID 11/24 2100 AC PO 12/01 2058 Clonazepam 0.5 MG TID 11/22 2100 DC 11/24 PO 11/29 205 1426 Folic Acid 1 MG DAILY 11/23 09 AC 11/24 PO 0947 Gabapentin 300 MG ONCE ONE 11/24 1645 UNVr PO 11/24 1646 Gabapentin 300 MG Q8 11/24 0836 AC 11/24 PO 1426 Heparin Sodium 5,000 UNIT Q8 11/22 1522 AC (Porcine) SC Multivitamins 1 TAB DAILY 11/23 09 AC 11/24 PO 0946 Nicotine 21 MG Q24 11/23 0900 AC 11/24 TOP 0947 Phytonadione 5 MG ONCE ONE 11/24 1230 DC 11/24 PO 11/24 1231 1240 Thiamine HCl 100 MG DAILY 11/23 899 AC 11/24 PO 0947 Tramadol HCl 50 MG ONCE ONE 11/23 2315 DC 11/23 PO 11/23 2316 2315 Results Pertinent Lab Results: Laboratory Tests 11/24 11/24 11/23 0650 0600 0355 Chemistry Sodium (137 - 145 mmol/L) 142 Potassium (3.5 - 5.1 mmol/L) 3.5 Chloride (98 - 107 mmol/L) 105 Carbon Dioxide (22 - 30 mmol/L) 26 Anion Gap (5 - 16) 11 BUN (7 - 17 mg/dL) 6 L Creatinine (0.5 - 1.0 mg/dL) 0.5 Estimated GFR (>60 ml/min) > 60 BUN/Creatinine Ratio (7 - 25 %) 12.0 Phosphorus (2.5 - 4.5 mg/dL) 4.7 H Magnesium (1.6 - 2.3 mg/dL) 1.8 Total Bilirubin (0.2 - 1.3 mg/dL) 3.5 H Direct Bilirubin (< 0.4 mg/dL) 2.6 H AST (14 - 36 U/L) 768 H ALT (9 - 52 U/L) 1235 H Alkaline Phosphatase (<127 U/L) 114 Total Protein (6.3 - 8.2 g/dL) 6.1 L Albumin (3.5 - 5.0 g/dL) 3.4 L Coagulation PT (9.4 - 12.5 SEC) 14.6 H INR (0.90 - 1.19) 1.34 H Hematology CBC w Diff NO MAN DIFF REQ WBC (4.8 - 10.8 /CUMM) 6.7 RBC (4.20 - 5.40 /CUMM) 4.38 Hgb (12.0 - 16.0 G/DL) 13.8 Hct (37 - 47 %) 41.7 MCV (81.0 - 99.0 FL) 95.1 MCH (27.0 - 31.0 PG) 31.4 H MCHC (33.0 - 37.0 G/DL) 33.0 RDW (11.5 - 14.5 %) 13.9 Plt Count (130 - 400 /CUMM) 185 MPV (7.4 - 10.4 FL) 10.3 Gran % (42.2 - 75.2 %) 53.7 Lymphocytes % (20.5 - 51.1 %) 32.8 Monocytes % (1.7 - 9.3 %) 9.7 H Eosinophils % (0 - 5 %) 3.0 Basophils % (0.0 - 2.0 %) 0.8 Absolute Granulocytes (1.4 - 6.5 /CUMM) 3.6 Absolute Lymphocytes (1.2 - 3.4 /CUMM) 2.2 Absolute Monocytes (0.10 - 0.60 /CUMM) 0.7 H Absolute Eosinophils (0.0 - 0.7 /CUMM) 0.2 Absolute Basophils (0.0 - 0.2 /CUMM) 0.1 Immunology Anti-Smooth Muscle Ab Pending Livr/Kid Microsome 1 Ab Pending Miscellaneous Ref Lab Test Result Pending 11/23 445 Chemistry Sodium (137 - 145 mmol/L) 140 Potassium (3.5 - 5.1 mmol/L) 3.7 Chloride (98 - 107 mmol/L) 110 H Carbon Dioxide (22 - 30 mmol/L) 24 Anion Gap (5 - 16) 6 BUN (7 - 17 mg/dL) 3 L Creatinine (0.5 - 1.0 mg/dL) 0.4 L Estimated GFR (>60 ml/min) > 60 Glucose (65 - 99 mg/dL) 98 Calcium (8.4 - 10.2 mg/dL) 8.9 Phosphorus (2.5 - 4.5 mg/dL) 3.8 Magnesium (1.6 - 2.3 mg/dL) 1.7 Total Bilirubin (0.2 - 1.3 mg/dL) 2.8 H AST (14 - 36 U/L) 699 H ALT (9 - 52 U/L) 1104 H Albumin (3.5 - 5.0 g/dL) 3.0 L Coagulation PT (9.4 - 12.5 SEC) 14.8 H INR (0.90 - 1.19) 1.35 H Hematology CBC w Diff NO MAN DIFF REQ WBC (4.8 - 10.8 /CUMM) 6.9 RBC (4.20 - 5.40 /CUMM) 4.16 L Hgb (12.0 - 16.0 G/DL) 13.1 Hct (37 - 47 %) 39.7 MCV (81.0 - 99.0 FL) 95.4 MCH (27.0 - 31.0 PG) 31.6 H MCHC (33.0 - 37.0 G/DL) 33.1 RDW (11.5 - 14.5 %) 13.9 Plt Count (130 - 400 /CUMM) 148 MPV (7.4 - 10.4 FL) 10.7 H Gran % (42.2 - 75.2 %) 47.9 Lymphocytes % (20.5 - 51.1 %) 35.8 Monocytes % (1.7 - 9.3 %) 10.4 H Eosinophils % (0 - 5 %) 3.3 Basophils % (0.0 - 2.0 %) 2.6 H Absolute Granulocytes (1.4 - 6.5 /CUMM) 3.3 Absolute Lymphocytes (1.2 - 3.4 /CUMM) 2.5 Absolute Monocytes (0.10 - 0.60 /CUMM) 0.7 H Absolute Eosinophils (0.0 - 0.7 /CUMM) 0.2 Absolute Basophils (0.0 - 0.2 /CUMM) 0.2 Immunology IMTIAZ Titer ND Anti-Nuclear Antibody (NEG,1:40) NEG 1:40 IFA ASSAY Serology HCV RNA (PCR) IUs/ml Pending HCV RNA PCR log IUs/ml Pending 11/22 11/22 1018 1010 Chemistry Total Beta HCG Cancelled Toxicology Urine Opiates Screen (>2000 NG/ML) < 100 Methadone Screen (>300 NG/ML) < 40 Barbiturate Screen (>200 NG/ML) < 60 Ur Phencyclidine Scrn (>25 NG/ML) < 6.00 Amphetamines Screen (>1000 NG/ML) < 100 U Benzodiazepines Scrn (>200 NG/ML) 123 Urine Cocaine Screen (>300 NG/ML) < 50 Urine Cannabis Screen (>50 NG/ML) > 80.00 H Urines Urinalysis MANY H Urine Color (YEL,AMB,STR) ESTELLA Urine Clarity (CLEAR) HAZY H Urine pH (5.0 - 8.0) 7.0 Ur Specific [place] (1.001 - 1.035) 1.020 Urine Protein (NEG,<30 MG/DL) NEG Urine Ketones (NEG) NEG Urine Nitrite (NEG) NEG Urine Bilirubin (NEG) POS@ICTO H Urine Urobilinogen (0.1 - 1.0 EU/dl) 4.0 H Ur Leukocyte Esterase (NEG) NEG Ur Microscopic SEDIMENT EXAMINED Urine RBC (0 - 5 /HPF) RARE Urine WBC (0 - 2 /HPF) RARE Ur Epithelial Cells (NONE,FEW) RARE Urine Mucus (FEW,NONE) RARE Urine Hemoglobin (NEG) NEG Urine Glucose (N MG/DL) NEG 11/22 1010 Chemistry Sodium (137 - 145 mmol/L) 144 Potassium (3.5 - 5.1 mmol/L) 4.1 Chloride (98 - 107 mmol/L) 103 Carbon Dioxide (22 - 30 mmol/L) 30 Anion Gap (5 - 16) 11 BUN (7 - 17 mg/dL) 8 Creatinine (0.5 - 1.0 mg/dL) 0.7 Estimated GFR (>60 ml/min) > 60 BUN/Creatinine Ratio (7 - 25 %) 11.4 Glucose (65 - 99 mg/dL) 96 Calcium (8.4 - 10.2 mg/dL) 9.4 Total Bilirubin (0.2 - 1.3 mg/dL) 2.8 H AST (14 - 36 U/L) 957 H ALT (9 - 52 U/L) 1359 H Alkaline Phosphatase (<127 U/L) 124 Creatine Kinase (30 - 135 U/L) 42 Total Protein (6.3 - 8.2 g/dL) 6.5 Albumin (3.5 - 5.0 g/dL) 3.8 Globulin (1.9 - 4.2 gm/dL) 2.7 Albumin/Globulin Ratio (1.1 - 2.2 %) 1.4 Lipase (23 - 300 U/L) 94 Total Beta HCG (NEGATIVE) NEGATIVE Coagulation PT (9.4 - 12.5 SEC) 12.4 INR (0.90 - 1.19) 1.14 APTT (25 - 37 SEC) 32 Hematology CBC w Diff NO MAN DIFF REQ WBC (4.8 - 10.8 /CUMM) 6.2 RBC (4.20 - 5.40 /CUMM) 4.57 Hgb (12.0 - 16.0 G/DL) 14.5 Hct (37 - 47 %) 43.7 MCV (81.0 - 99.0 FL) 95.7 MCH (27.0 - 31.0 PG) 31.8 H MCHC (33.0 - 37.0 G/DL) 33.2 RDW (11.5 - 14.5 %) 13.9 Plt Count (130 - 400 /CUMM) 238 MPV (7.4 - 10.4 FL) 9.1 Gran % (42.2 - 75.2 %) 51.4 Lymphocytes % (20.5 - 51.1 %) 32.4 Monocytes % (1.7 - 9.3 %) 11.3 H Eosinophils % (0 - 5 %) 4.0 Basophils % (0.0 - 2.0 %) 0.9 Absolute Granulocytes (1.4 - 6.5 /CUMM) 3.2 Absolute Lymphocytes (1.2 - 3.4 /CUMM) 2.0 Absolute Monocytes (0.10 - 0.60 /CUMM) 0.7 H Absolute Eosinophils (0.0 - 0.7 /CUMM) 0.2 Absolute Basophils (0.0 - 0.2 /CUMM) 0.1 Toxicology Acetaminophen (10.0 - 30.0 ug/mL) < 10.0 L Serum Alcohol (<10 MG/DL) < 10.0
[2017-11-25] VITALS (15 sets, daily range): BP systolic 84–122; BP diastolic 48–76
--- NOTE | 2017-11-25 01:47 | Event Note ---
Event Note Event Note: Around 1:03 p.t found on the floor rapid response called. she was lying on the floor in front of her room she ws responsive and answering questions, she stated that she was walking back form the floor kitchen to her room when she felt dizzy and lightheaded and sweaty so she lay down and did not hit her head or arm no one of the nurses witnessed that but the p.t very sure, she stated that she feel nauseated and still c/o the same ABD pain since the admission. of note she received total of 900 mg of Gabapentin within 6-8 hrs additional to the restart of KlonoPIN and she received dose of suboxone during the day and night her SBP was 90s and prior to the event SBP was 92 mmHg. Her vitals were: BP:118/75 P:60 RR:16 O2 Sat:97%. She was alert, awake and oriented X3. No signs of head or arm nor back trauma. EKG/Trop/CBC/BEP/Lfts/Utox and Lactic acid order and the p.t was placed on the Tele monitor as she was off telemetry monitoring. 500 mg of NS IVF started. p.t mother was notified.
[2017-11-25 02:40] LABS: ABSOLUTE BASOPHIL COUNT 0.1 /CUMM (0.0-0.2); ABSOLUTE EOSINOPHIL COUNT 0.2 /CUMM (0.0-0.7); ABSOLUTE GRANULOCYTE CT 3.6 /CUMM (1.4-6.5); ABSOLUTE LYMPH COUNT 2.4 /CUMM (1.2-3.4); ABSOLUTE MONOCYTE COUNT 0.7 /CUMM (0.10-0.60); BASOPHIL % 1.6 % (0.0-2.0); EOSINOPHIL % 3.3 % (0-5); GRANULOCYTE % 51.3 % (42.2-75.2); HEMATOCRIT 44.8 % (37-47); MEAN CORPUSCULAR HGB 31.2 PG (27.0-31.0); MEAN CORPUSCULAR HGB CONC 32.9 G/DL (33.0-37.0); MEAN CORPUSCULAR VOLUME 94.7 FL (81.0-99.0); MEAN PLATELET VOLUME 10.7 FL (7.4-10.4); PLATELET COUNT 155 /CUMM (130-400); RBC DISTRIBUTION WIDTH 13.8 % (11.5-14.5); RED BLOOD CELL CT 4.73 /CUMM (4.20-5.40)
[2017-11-25 05:23] LABS: PT 14.1 SEC (9.4-12.5)
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
--- NOTE | 2017-11-25 13:36 | PN- Gastroenterology ---
Assessment/Plan GI Assessment/Recommendations: ASSESSMENT: 1. History of Substance Abuse 2. Acute Liver Injury -- ? Tylenol Toxicity in the setting of alcohol abuse, ? DILI due to Suboxone 3. Elevated Transaminases -- ? etiology due due tylenol, suboxone, ? element of shock liver, but no documented hypotension 4. History of Alcohol Abuse 5. Coagulopathy 6. S/P Fall, Loss of Conscioussness 7. Encephalopathy RECOMMENDATIONS: 1. Would continue N-acetylcysteine up to 72 hours at reduced dose since coags are not trending downwards 2. Continue to hold suboxone 3. Regular diet 4. If change in mental status or persistent increasing PT-INR will consider transfer to [facility] 5. Discussed with patient that if there is no change in level of transaminitis would consider liver biopsy for further elucidation 6. Would rule out VZV, HSV, EBV and CMV as other potential causes of acute liver injury 7. Would consider liver biopsy tomorrow as coags are decreasing and as yet there is no clear etiology for patient's acute liver injury which at this time is subacute. 8. CT Scan of the Head Now r/o bleed, edema 9. Start lactulose 30 ml PO TID-QID titrate to 3-4 loose stools daily Subjective Subjective: Patient had fall earlier today. Benzodiazepines discontinued. Patient reports that she felt dizzy and then sat down on the floor and passed out. Was found down on the floor by nursing. Did not have a head CT. Appears somewhat lethargic. Denies trauma to head. Denies change in sleep wake cycle. Objective Vital Signs and I&Os Vital Signs Date Time Temp Pulse Resp B/P B/P Pulse O2 O2 Flow FiO2 Mean Ox Delivery Rate 05/ 1200 70 05/02 1000 61 98/50 05/02 0936 76 98/50 05/02 0800 97.8 60 20 84/48 05/02 0755 59 84/48 05/02 0707 60 94/62 05/02 0624 97.8 61 20 84/56 99 Room Air 05/02 0600 97.8 61 16 84/56 05/02 0418 97.8 58 18 110/58 97 Room Air 05/02 0142 64 24 118/74 05/02 0018 97.8 67 18 92/56 97 Room Air 11/24 1617 97.9 62 18 92/44 96 Room Air 11/24 1411 97.9 51 20 98/62 96 Room Air Intake & Output 11/25 1600 11/25 0400 11/24 1600 11/24 0400 11/23 1600 11/23 0400 Intake Total 1650 325.1 1168 41 3277 1628 Output Total 300 3075 1400 Balance 1650 325.1 1168 -259 202 228 Intake, IV 1300 125.1 128 17 4895 1508 Intake, Oral 350 200 540 850 120 Number 0 Bowel Movements Output, Urine 300 3075 1400 Patient 107 lb 101 lb 91 lb 15.98 oz Weight Weight Bed scale Measurement Method Physical Exam General Appearance: well developed/nourished, no apparent distress, alert, awake Head: atraumatic, normal appearance Ears, Nose, Throat: hearing grossly normal Respiratory: normal breath sounds, chest non-tender, lungs clear Cardiovascular: regular rate/rhythm, Normal S1 and S2 without rub, murmur or gallop Abdomen: normal bowel sounds, soft, non-tender, no organomegaly Neurologic/Psychiatric: oriented x 3, patient appears somewhat lethargic. Was difficult to arouse. Has mild asterixis. Skin: intact, warm/dry Current Medications: Current Medications Sig/Ravinder Start time Last Medication Dose Route Stop Time Status Admin Acetylcysteine 6,000 MG Q24H 11/23 1500 AC 11/24 Dextrose/Water 1,000 ML IV 11/25 1459 1612 Clonazepam 0.5 MG BID 11/24 2100 AC 11/25 PO 12/01 2058 0945 Clonazepam 0.5 MG TID 11/22 2100 DC 11/24 PO 11/29 205 1426 Folic Acid 1 MG DAILY 11/23 09 AC 11/25 PO 0945 Gabapentin 300 MG ONCE ONE 11/24 1645 DC 11/24 PO 11/24 1646 1651 Gabapentin 300 MG Q8 11/24 0836 DC 11/24 PO 2049 Heparin Sodium 5,000 UNIT Q8 11/22 1522 AC (Porcine) SC Multivitamins 1 TAB DAILY 11/23 09 AC 11/25 PO 0945 Nicotine 21 MG Q24 11/23 0900 AC 11/25 TOP 0945 Sodium Chloride 1,000 ML Q10H 11/25 0700 AC 11/25 IV 11/25 1659 0658 Sodium Chloride 1,000 ML BOLUS ONE 11/25 0630 CAN IV 11/25 0829 Sodium Chloride 500 ML BOLUS ONE 11/25 06 DC 11/25 IV 11/25 0729 0625 Sodium Chloride 1,000 ML BOLUS ONE 11/25 0130 DC 11/25 IV 11/25 0329 0130 Thiamine HCl 100 MG DAILY 11/23 0900 AC 11/25 PO 0945 Results Pertinent Lab Results: Laboratory Tests 11/25 11/25 11/25 11/25 06 0450 0240 0220 Chemistry Sodium (137 - 145 mmol/L) 141 Potassium (3.5 - 5.1 mmol/L) 3.5 Chloride (98 - 107 mmol/L) 104 Carbon Dioxide (22 - 30 mmol/L) 26 Anion Gap (5 - 16) 11 BUN (7 - 17 mg/dL) 10 Creatinine (0.5 - 1.0 mg/dL) 0.4 L Estimated GFR (>60 ml/min) > 60 BUN/Creatinine Ratio (7 - 25 %) 25.0 Lactic Acid (0.7 - 2.1 mmol/L) 0.7 Iron (37 - 170 ug/dL) 169 TIBC (265 - 497 ug/dL) 414 Ferritin (6.24 - 137 ng/mL) 227.0 H Total Bilirubin (0.2 - 1.3 mg/dL) 3.1 H Direct Bilirubin (< 0.4 mg/dL) 2.2 H AST (14 - 36 U/L) 799 H ALT (9 - 52 U/L) 1376 H Alkaline Phosphatase (<127 U/L) 116 Troponin I (< 0.11 ng/ml) < 0.01 Total Protein (6.3 - 8.2 g/dL) 6.1 L Albumin (3.5 - 5.0 g/dL) 3.6 [id number] Pending Ceruloplasmin Pending Coagulation PT (9.4 - 12.5 SEC) 14.1 H INR (0.90 - 1.19) 1.29 H Miscellaneous Ref Lab Test Result Pending Toxicology Urine Opiates Screen (>2000 NG/ML) < 100 Methadone Screen (>300 NG/ML) < 40 Barbiturate Screen (>200 NG/ML) < 60 Ur Phencyclidine Scrn (>25 NG/ML) < 6.00 Amphetamines Screen (>1000 NG/ML) 101 U Benzodiazepines Scrn (>200 NG/ML) 127 Urine Cocaine Screen (>300 NG/ML) < 50 Urine Cannabis Screen (>50 NG/ML) > 80.00 H 11/25 11/24 0144 0650 Chemistry Sodium (137 - 145 mmol/L) Cancelled 142 Potassium (3.5 - 5.1 mmol/L) Cancelled 3.5 Chloride (98 - 107 mmol/L) Cancelled 105 Carbon Dioxide (22 - 30 mmol/L) Cancelled 26 Anion Gap (5 - 16) Cancelled 11 BUN (7 - 17 mg/dL) Cancelled 6 L Creatinine (0.5 - 1.0 mg/dL) Cancelled 0.5 Estimated GFR (>60 ml/min) > 60 BUN/Creatinine Ratio (7 - 25 %) Cancelled 12.0 Phosphorus (2.5 - 4.5 mg/dL) 4.7 H Magnesium (1.6 - 2.3 mg/dL) 1.8 Total Bilirubin (0.2 - 1.3 mg/dL) Cancelled 3.5 H Direct Bilirubin (< 0.4 mg/dL) Cancelled 2.6 H AST (14 - 36 U/L) Cancelled 768 H ALT (9 - 52 U/L) Cancelled 1235 H Alkaline Phosphatase (<127 U/L) Cancelled 114 Troponin I Cancelled Total Protein (6.3 - 8.2 g/dL) Cancelled 6.1 L Albumin (3.5 - 5.0 g/dL) Cancelled 3.4 L Coagulation PT (9.4 - 12.5 SEC) 14.6 H INR (0.90 - 1.19) 1.34 H Hematology CBC w Diff MAN DIFF ORDERED NO MAN DIFF REQ WBC (4.8 - 10.8 /CUMM) 7.0 6.7 RBC (4.20 - 5.40 /CUMM) 4.73 4.38 Hgb (12.0 - 16.0 G/DL) 14.7 13.8 Hct (37 - 47 %) 44.8 41.7 MCV (81.0 - 99.0 FL) 94.7 95.1 MCH (27.0 - 31.0 PG) 31.2 H 31.4 H MCHC (33.0 - 37.0 G/DL) 32.9 L 33.0 RDW (11.5 - 14.5 %) 13.8 13.9 Plt Count (130 - 400 /CUMM) 155 185 MPV (7.4 - 10.4 FL) 10.7 H 10.3 Gran % (42.2 - 75.2 %) 51.3 53.7 Lymphocytes % (20.5 - 51.1 %) 33.5 32.8 Monocytes % (1.7 - 9.3 %) 10.3 H 9.7 H Eosinophils % (0 - 5 %) 3.3 3.0 Basophils % (0.0 - 2.0 %) 1.6 0.8 Absolute Granulocytes (1.4 - 6.5 /CUMM) 3.6 3.6 Segmented Neutrophils (42.2 - 75.2 %) 45 Absolute Lymphocytes (1.2 - 3.4 /CUMM) 2.4 2.2 Lymphocytes (20.5 - 51.1 %) 40 Monocytes (1.7 - 9.3 %) 10 H Absolute Monocytes (0.10 - 0.60 /CUMM) 0.7 H 0.7 H Eosinophils (0 - 5.0 %) 4 Absolute Eosinophils (0.0 - 0.7 /CUMM) 0.2 0.2 Basophils (0.0 - 2.0 %) 1 Absolute Basophils (0.0 - 0.2 /CUMM) 0.1 0.1 Platelet Estimate (ADEQUATE) ADEQUATE Hypochromic-Microcytic 1+ Poikilocytosis 1+ Ovalocytes 1+ Other Body Source Fld Total RBCs Counted (%) 100 05/11/23 0600 0355 0355 Chemistry Sodium (137 - 145 mmol/L) 140 Potassium (3.5 - 5.1 mmol/L) 3.7 Chloride (98 - 107 mmol/L) 110 H Carbon Dioxide (22 - 30 mmol/L) 24 Anion Gap (5 - 16) 6 BUN (7 - 17 mg/dL) 3 L Creatinine (0.5 - 1.0 mg/dL) 0.4 L Estimated GFR (>60 ml/min) > 60 Glucose (65 - 99 mg/dL) 98 Calcium (8.4 - 10.2 mg/dL) 8.9 Phosphorus (2.5 - 4.5 mg/dL) 3.8 Magnesium (1.6 - 2.3 mg/dL) 1.7 Total Bilirubin (0.2 - 1.3 mg/dL) 2.8 H AST (14 - 36 U/L) 699 H ALT (9 - 52 U/L) 1104 H Albumin (3.5 - 5.0 g/dL) 3.0 L Coagulation PT (9.4 - 12.5 SEC) 14.8 H INR (0.90 - 1.19) 1.35 H Hematology CBC w Diff NO MAN DIFF REQ WBC (4.8 - 10.8 /CUMM) 6.9 RBC (4.20 - 5.40 /CUMM) 4.16 L Hgb (12.0 - 16.0 G/DL) 13.1 Hct (37 - 47 %) 39.7 MCV (81.0 - 99.0 FL) 95.4 MCH (27.0 - 31.0 PG) 31.6 H MCHC (33.0 - 37.0 G/DL) 33.1 RDW (11.5 - 14.5 %) 13.9 Plt Count (130 - 400 /CUMM) 148 MPV (7.4 - 10.4 FL) 10.7 H Gran % (42.2 - 75.2 %) 47.9 Lymphocytes % (20.5 - 51.1 %) 35.8 Monocytes % (1.7 - 9.3 %) 10.4 H Eosinophils % (0 - 5 %) 3.3 Basophils % (0.0 - 2.0 %) 2.6 H Absolute Granulocytes (1.4 - 6.5 /CUMM) 3.3 Absolute Lymphocytes (1.2 - 3.4 /CUMM) 2.5 Absolute Monocytes (0.10 - 0.60 /CUMM) 0.7 H Absolute Eosinophils (0.0 - 0.7 /CUMM) 0.2 Absolute Basophils (0.0 - 0.2 /CUMM) 0.2 Immunology IMTIAZ Titer ND Anti-Nuclear Antibody (NEG,1:40) NEG 1:40 IFA ASSAY Anti-Smooth Muscle Ab Pending Livr/Kid Microsome 1 Ab Pending Miscellaneous Ref Lab Test Result Pending Serology HCV RNA (PCR) IUs/ml Pending HCV RNA PCR log IUs/ml Pending
--- NOTE | 2017-11-25 17:46 | CT SCAN REPORT ---
EXAMINATION: CT HEAD WITHOUT CONTRAST CLINICAL INFORMATION: Unwitnessed fall with loss of consciousness last evening. COMPARISON: 11/16/2017 TECHNIQUE: Contiguous axial imaging was performed from the skull base to vertex without intravenous contrast. DLP: 597 mGy-cm. FINDINGS: There is no evidence of acute intracranial hemorrhage or territorial infarction. No abnormal mass effect or midline shift is seen. Kumar to white matter differentiation is well preserved. No extra-axial fluid collections are identified. No hydrocephalus. No significant volume loss. There is no abnormal attenuation within the brain parenchyma. The osseous structures and soft tissues are normal. The mastoid air cells and visualized portions of the paranasal sinuses are well aerated. IMPRESSION: No acute intracranial pathology.
[2017-11-26] VITALS (10 sets, daily range): BP systolic 90–118; BP diastolic 50–70
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
[2017-11-26 08:06] LABS: ABSOLUTE BASOPHIL COUNT 0 /CUMM (0.0-0.2); ABSOLUTE EOSINOPHIL COUNT 0.3 /CUMM (0.0-0.7); ABSOLUTE GRANULOCYTE CT 3.1 /CUMM (1.4-6.5); ABSOLUTE LYMPH COUNT 2.2 /CUMM (1.2-3.4); ABSOLUTE MONOCYTE COUNT 0.6 /CUMM (0.10-0.60); BASOPHIL % 0.7 % (0.0-2.0); EOSINOPHIL % 4.8 % (0-5); GRANULOCYTE % 49.4 % (42.2-75.2); HEMATOCRIT 40.7 % (37-47); MEAN CORPUSCULAR HGB 31.5 PG (27.0-31.0); MEAN CORPUSCULAR HGB CONC 33.3 G/DL (33.0-37.0); MEAN CORPUSCULAR VOLUME 94.8 FL (81.0-99.0); RBC DISTRIBUTION WIDTH 13.8 % (11.5-14.5); WHITE BLOOD CELL COUNT 6.2 /CUMM (4.8-10.8)
[2017-11-26 08:29] LABS: PT 12.9 SEC (9.4-12.5)
--- NOTE | 2017-11-26 10:17 | PN- Gastroenterology ---
Assessment/Plan GI Assessment/Recommendations: ASSESSMENT: 1. History of Substance Abuse 2. Acute Liver Injury -- 3. Elevated Transaminases -- patient with elevated ASMA. Do not have titer. Question whether this is cross reactivating antibody in the setting of hepatitis C and in the absence of titer unclear significance. Also still concern regarding DILI due to suboxone. 4. History of Alcohol Abuse 5. Coagulopathy -- INR down to 1.18 6. S/P Fall, Loss of Conscioussness 7. Encephalopathy -- ? depression confounding clinical appearance RECOMMENDATIONS: 1. Would discontinue N-acetylcysteine 2. Continue to hold suboxone 3. Regular diet 4. Positive ASMA, highly suggestive of AIH Type 1. Would order titer of ASMA as well as serum immunoglobulins. 5. Discussed with patient that she had positive ASMA which was highly suggestive of an autoimmune hepatitis. Discussed that there is treatment for this which would consist of prednisone and possibly azathioprine as well. 6. We'll await results of liver biopsy 7. Would have psychiatry see patient. I've explained to Mrs. Parrish that she cannot take Suboxone again in the setting of acute liver injury. This will make remaining abstinent from heroin quite difficult. Further given her depressed affect psychiatry may be able to offer medications that would help with depression as well as with abstinence from narcotics. 8. Would consider discharge planning for the next 24-48 hours. Patient will need close follow-up with me. Patient will need to be seen in the office next week. However I would make sure that gammaglobulins/serum immunoglobulins as well as in ASMA titer have been ordered prior to discharge and that she has been seen by psychiatry prior to discharge. 9. Would also make sure that she has outpatient follow-up with psychiatry. Subjective Subjective: Patient had a fall/loss of consciousness yesterday. Had head CT last night. The results are as follows. FINDINGS: There is no evidence of acute intracranial hemorrhage or territorial infarction. No abnormal mass effect or midline shift is seen. Kumar to white matter differentiation is well preserved. No extra-axial fluid collections are identified. No hydrocephalus. No significant volume loss. There is no abnormal attenuation within the brain parenchyma. The osseous structures and soft tissues are normal. The mastoid air cells and visualized portions of the paranasal sinuses are well aerated. IMPRESSION: No acute intracranial pathology. Objective Vital Signs and I&Os Vital Signs Date Time Temp Pulse Resp B/P B/P Pulse O2 O2 Flow FiO2 Mean Ox Delivery Rate 11/26 1201 97.8 59 18 98/52 100 Nasal 2.0L Cannula 11/26 1200 97.8 59 98/52 11/26 0800 98.0 59 18 102/60 / 0653 98.0 59 18 102/60 99 Room Air 11/26 0000 97.9 59 18 118/64 11/25 2224 98.7 54 22 122/76 97 11/25 1946 98.0 68 18 102/72 98 Room Air 11/25 1945 98.0 68 18 102/72 11/25 1800 100 11/25 1600 97.0 66 18 92/60 / 1413 96.8 66 18 92/60 97 Room Air 11/25 1400 67 Intake & Output 11/26 1600 11/26 0400 11/25 1600 11/25 0400 11/24 1600 11/24 0400 Intake Total 100 605.1 3423 325.1 1168 41 Output Total 400 300 Balance 100 605.1 3023 325.1 1168 -259 Intake, IV 125.1 2433 125.1 628 41 Intake, Oral 100 480 990 200 540 Output, Urine 400 300 Patient 112 lb 107 lb 101 lb Weight Weight Bed scale Measurement Method Physical Exam General Appearance: no apparent distress, patient appears somewhat depressed. Head: atraumatic, normal appearance Cardiovascular: regular rate/rhythm, normal S1 and S2 regular Abdomen: normal bowel sounds, soft, non-tender Neurologic/Psychiatric: no motor/sensory deficits, awake, alert, oriented x 3 Skin: intact Current Medications: Current Medications Sig/Ravinder Start time Last Medication Dose Route Stop Time Status Admin Acetylcysteine 6,000 MG Q24H 11/23 1500 DC 11/24 Dextrose/Water 1,000 ML IV 11/25 1459 1612 Clonazepam 0.5 MG BID 11/24 2100 AC 11/25 PO 12/01 Fentanyl Citrate 0 .STK-MED ONE 11/26 948 DC .ROUTE Fentanyl Citrate 0 .STK-MED ONE 11/26 913 DC .ROUTE Folic Acid 1 MG DAILY 11/23 0900 AC 11/25 PO 0945 Heparin Sodium 5,000 UNIT Q8 11/22 1522 AC (Porcine) SC Hydromorphone HCl 0 .STK-MED ONE 11/26 1013 DC .ROUTE Hydroxyzine HCl 25 MG ONCE ONE 11/25 1645 DC 11/25 PO 11/25 1646 1747 Lactulose 20 GM BID 11/25 2100 AC 11/25 PO 2011 Midazolam HCl 0 .STK-MED ONE 11/26 948 DC .ROUTE Midazolam HCl 0 .STK-MED ONE 11/26 913 DC .ROUTE Multivitamins 1 TAB DAILY 11/23 899 AC 11/25 PO 0945 Nicotine 21 MG Q24 11/23 899 AC 11/25 TOP 0945 Sodium Chloride 1,000 ML Q10H 11/25 07 DC 11/25 IV 11/25 1659 0658 Thiamine HCl 100 MG DAILY 11/23 899 AC 11/25 PO 0945 Results Pertinent Lab Results: Laboratory Tests 11/26 Chemistry Sodium (137 - 145 mmol/L) 142 Potassium (3.5 - 5.1 mmol/L) 3.6 Chloride (98 - 107 mmol/L) 107 Carbon Dioxide (22 - 30 mmol/L) 27 Anion Gap (5 - 16) 8 BUN (7 - 17 mg/dL) 9 Creatinine (0.5 - 1.0 mg/dL) 0.5 Estimated GFR (>60 ml/min) > 60 BUN/Creatinine Ratio (7 - 25 %) 18.0 Total Bilirubin (0.2 - 1.3 mg/dL) 2.5 H Direct Bilirubin (< 0.4 mg/dL) 1.9 H AST (14 - 36 U/L) 745 H ALT (9 - 52 U/L) 1282 H Alkaline Phosphatase (<127 U/L) 108 Total Protein (6.3 - 8.2 g/dL) 5.9 L Albumin (3.5 - 5.0 g/dL) 3.3 L Gaktc-[id number] Pending Ceruloplasmin Pending Coagulation PT (9.4 - 12.5 SEC) 12.9 H INR (0.90 - 1.19) 1.18 Hematology CBC w Diff NO MAN DIFF REQ WBC (4.8 - 10.8 /CUMM) 6.2 RBC (4.20 - 5.40 /CUMM) 4.30 Hgb (12.0 - 16.0 G/DL) 13.5 Hct (37 - 47 %) 40.7 MCV (81.0 - 99.0 FL) 94.8 MCH (27.0 - 31.0 PG) 31.5 H MCHC (33.0 - 37.0 G/DL) 33.3 RDW (11.5 - 14.5 %) 13.8 Plt Count (/CUMM) Gran % (42.2 - 75.2 %) 49.4 Lymphocytes % (20.5 - 51.1 %) 34.8 Monocytes % (1.7 - 9.3 %) 10.3 H Eosinophils % (0 - 5 %) 4.8 Basophils % (0.0 - 2.0 %) 0.7 Absolute Granulocytes (1.4 - 6.5 /CUMM) 3.1 Absolute Lymphocytes (1.2 - 3.4 /CUMM) 2.2 Absolute Monocytes (0.10 - 0.60 /CUMM) 0.6 Absolute Eosinophils (0.0 - 0.7 /CUMM) 0.3 Absolute Basophils (0.0 - 0.2 /CUMM) 0 Miscellaneous Ref Lab Test Result Pending Serology CMV IgG Ab Pending CMV IgM Ab Pending EBV Capsid Ag IgG Ab Pending EBV Capsid Ag IgM Ab Pending EBV Nuclear Ag IgG Ab Pending EBV Interpretation Pending HSV I IgG Ab Pending HSV II IgG Pending HIV 1&2 Ab Western Blot (NONREACTIVE) Pending VZV IgG Antibody Pending VZV IgM Antibody Pending 11/25 11/25 11/25 0450 0240 0220 Chemistry Sodium (137 - 145 mmol/L) 141 Potassium (3.5 - 5.1 mmol/L) 3.5 Chloride (98 - 107 mmol/L) 104 Carbon Dioxide (22 - 30 mmol/L) 26 Anion Gap (5 - 16) 11 BUN (7 - 17 mg/dL) 10 Creatinine (0.5 - 1.0 mg/dL) 0.4 L Estimated GFR (>60 ml/min) > 60 BUN/Creatinine Ratio (7 - 25 %) 25.0 Lactic Acid (0.7 - 2.1 mmol/L) 0.7 Iron (37 - 170 ug/dL) 169 TIBC (265 - 497 ug/dL) 414 Ferritin (6.24 - 137 ng/mL) 227.0 H Total Bilirubin (0.2 - 1.3 mg/dL) 3.1 H Direct Bilirubin (< 0.4 mg/dL) 2.2 H AST (14 - 36 U/L) 799 H ALT (9 - 52 U/L) 1376 H Alkaline Phosphatase (<127 U/L) 116 Troponin I (< 0.11 ng/ml) < 0.01 Total Protein (6.3 - 8.2 g/dL) 6.1 L Albumin (3.5 - 5.0 g/dL) 3.6 Coagulation PT (9.4 - 12.5 SEC) 14.1 H INR (0.90 - 1.19) 1.29 H Toxicology Urine Opiates Screen (>2000 NG/ML) < 100 Methadone Screen (>300 NG/ML) < 40 Barbiturate Screen (>200 NG/ML) < 60 Ur Phencyclidine Scrn (>25 NG/ML) < 6.00 Amphetamines Screen (>1000 NG/ML) 101 U Benzodiazepines Scrn (>200 NG/ML) 127 Urine Cocaine Screen (>300 NG/ML) < 50 Urine Cannabis Screen (>50 NG/ML) > 80.00 H 11/25 11/24 0144 0650 Chemistry Sodium (137 - 145 mmol/L) Cancelled 142 Potassium (3.5 - 5.1 mmol/L) Cancelled 3.5 Chloride (98 - 107 mmol/L) Cancelled 105 Carbon Dioxide (22 - 30 mmol/L) Cancelled 26 Anion Gap (5 - 16) Cancelled 11 BUN (7 - 17 mg/dL) Cancelled 6 L Creatinine (0.5 - 1.0 mg/dL) Cancelled 0.5 Estimated GFR (>60 ml/min) > 60 BUN/Creatinine Ratio (7 - 25 %) Cancelled 12.0 Phosphorus (2.5 - 4.5 mg/dL) 4.7 H Magnesium (1.6 - 2.3 mg/dL) 1.8 Total Bilirubin (0.2 - 1.3 mg/dL) Cancelled 3.5 H Direct Bilirubin (< 0.4 mg/dL) Cancelled 2.6 H AST (14 - 36 U/L) Cancelled 768 H ALT (9 - 52 U/L) Cancelled 1235 H Alkaline Phosphatase (<127 U/L) Cancelled 114 Troponin I Cancelled Total Protein (6.3 - 8.2 g/dL) Cancelled 6.1 L Albumin (3.5 - 5.0 g/dL) Cancelled 3.4 L Coagulation PT (9.4 - 12.5 SEC) 14.6 H INR (0.90 - 1.19) 1.34 H Hematology CBC w Diff MAN DIFF ORDERED NO MAN DIFF REQ WBC (4.8 - 10.8 /CUMM) 7.0 6.7 RBC (4.20 - 5.40 /CUMM) 4.73 4.38 Hgb (12.0 - 16.0 G/DL) 14.7 13.8 Hct (37 - 47 %) 44.8 41.7 MCV (81.0 - 99.0 FL) 94.7 95.1 MCH (27.0 - 31.0 PG) 31.2 H 31.4 H MCHC (33.0 - 37.0 G/DL) 32.9 L 33.0 RDW (11.5 - 14.5 %) 13.8 13.9 Plt Count (130 - 400 /CUMM) 155 185 MPV (7.4 - 10.4 FL) 10.7 H 10.3 Gran % (42.2 - 75.2 %) 51.3 53.7 Lymphocytes % (20.5 - 51.1 %) 33.5 32.8 Monocytes % (1.7 - 9.3 %) 10.3 H 9.7 H Eosinophils % (0 - 5 %) 3.3 3.0 Basophils % (0.0 - 2.0 %) 1.6 0.8 Absolute Granulocytes (1.4 - 6.5 /CUMM) 3.6 3.6 Segmented Neutrophils (42.2 - 75.2 %) 45 Absolute Lymphocytes (1.2 - 3.4 /CUMM) 2.4 2.2 Lymphocytes (20.5 - 51.1 %) 40 Monocytes (1.7 - 9.3 %) 10 H Absolute Monocytes (0.10 - 0.60 /CUMM) 0.7 H 0.7 H Eosinophils (0 - 5.0 %) 4 Absolute Eosinophils (0.0 - 0.7 /CUMM) 0.2 0.2 Basophils (0.0 - 2.0 %) 1 Absolute Basophils (0.0 - 0.2 /CUMM) 0.1 0.1 Platelet Estimate (ADEQUATE) ADEQUATE Hypochromic-Microcytic 1+ Poikilocytosis 1+ Ovalocytes 1+ Other Body Source Fld Total RBCs Counted (%) 100 11/24 0600 Immunology Livr/Kid Microsome 1 Ab Pending Miscellaneous Ref Lab Test Result Pending
--- NOTE | 2017-11-26 11:56 | ULTRASOUND REPORT ---
EXAMINATION: Ultrasound-guided core liver biopsy CLINICAL INFORMATION: Hepatic failure with possible viral/alcoholic hepatitis COMPARISON: CT abdomen 11/22/2017 TECHNIQUE/FINDINGS: Informed consent was obtained from the patient prior to the procedure. During this process, the procedure and potential alternatives was explained, along with the intended outcome and benefits. The risks of the procedure, as well as the risk of not doing the procedure, were discussed. The patient was given the opportunity to ask questions regarding the procedure and appeared competent to make medical decisions. A signed consent form which documents this discussion was placed in the medical record. A timeout was performed in the room. Sonographic evaluation of the liver demonstrates a suitable percutaneous window for biopsy of the left lobe. The skin over the midepigastrium was sterilely prepped and draped using maximal sterile barrier technique. All elements of maximal sterile barrier technique followed including use of cap, mask, sterile gown, sterile gloves, a sterile full body drape and hand hygiene. Also followed skin preparation with 2% chlorhexidine for cutaneous antisepsis, and sterile ultrasound preparation with sterile gel and probe cover when applicable. 1% lidocaine was administered for local anesthesia. Under continuous sonographic guidance, a 16-gauge guiding needle was advanced into the hepatic parenchyma. 2 18-gauge cores were sequentially obtained. After the biopsy, 3 pledgets of Gelfoam were introduced through the guiding needle to promote hemostasis. Subsequently, the guiding needle was removed and pressure was applied to the site. The patient tolerated the procedure well without evidence of immediate complication. A repeat ultrasound after the biopsy showed no evidence of perihepatic hemorrhage or bleeding. The patient was was observed for 2 hours prior to returning to her hospital floor. IMPRESSION: Successful ultrasound-guided core liver biopsy.
[2017-11-27 06:05] VITALS: BP 96/58
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
[2017-11-27 08:29] LABS: PT 12.5 SEC (9.4-12.5)
[2017-11-27] MEDS ORDERED: CLONIDINE HCL0.1 MG PO (14:37)
[2017-11-27 14:39] VITALS: BP 95/56
[2017-11-27] MEDS ORDERED: CLONAZEPAM0.25 M1 PO (15:36)
--- NOTE | 2017-11-27 15:47 | Patient Discharge Instructions ---
Discharge Instructions General Discharge Information You were seen/treated for: Hepatitis Acute liver failure Hepatitis C infection Substance abuse Special Instructions: Stop taking suboxone/buprenorphine and follow up with Dr. Gomez () for treatment of your liver injury and hepatitis C infection. You are being discharged on a benzodiazepine taper. Follow up with Dr. Kaur 06/13 2PM for to continue to benzodiazepine taper and treatment. [facility] [phone], 12/14/17 2PM If issues, call [place] [facility] [phone]. Acute Coronary Syndrome Inclusion Criteria At DC or during hospital stay patient has or had the following: ACS DIAGNOSIS No Discharge Core Measures Meds if any: Prescribed or Continued at Discharge Meds if any: NOT Prescribed or Continued at Discharge Congestive Heart Failure Inclusion Criteria At DC or during hospital stay patient has or had the following: CHF DIAGNOSIS No Discharge Core Measures Meds if any: Prescribed or Continued at Discharge Meds if any: NOT Prescribed or Continued at Discharge Cerebrovascular accident Inclusion Criteria At DC or during hospital stay patient has or had the following: CVA/TIA Diagnosis No Discharge Core Measures Meds if any: Prescribed or Continued at Discharge Meds if any: NOT Prescribed or Continued at Discharge Venous thromboembolism Inclusion Criteria VTE Diagnosis No VTE Type NONE VTE Confirmed by (Test) NONE Discharge Core Measures - Per Current guidelines, there needs to be overlap - treatment for the first 5 days of Warfarin therapy. - If discharged on Warfarin prior to 5 days of - overlap therapy, the patient will need to be - assessed for post discharge needs including - *Post discharge parental anticoagulation - *Warfarin and/or parental anticoagulation education - *Follow up date to check INR post discharge At least 5 days overlap therapy as Inpatient No Meds if any: Prescribed or Continued at Discharge Note: Overlap Therapy is Warfarin and Anticoagulant Meds if any: NOT Prescribed or Continued at Discharge
--- NOTE | 2017-11-27 16:36 | PN- Gastroenterology ---
Assessment/Plan GI Assessment/Recommendations: Acute liver injury with transaminitis and hyperbilirubinemia (normal alkaline phosphatase). Bilirubin and INR have improved. There is no encephalopathy. The patient has no constitutional symptoms such as nausea or fever. Differential diagnosis includes acute hepatitis C, DILI, autoimmune hepatitis ( positive smooth muscle antibody), Jung's disease (despite normal ceruloplasmin is possible, especially with normal alkaline phosphatase; however spontaneous improvement in liver failure is unlikely). RECOMMENDATIONS: * Check LFTs and INR in the morning; if stable/improved, consider discharge with careful outpatient follow-up. * Await results of liver biopsy, and further serologic evaluation. * Continue to hold suboxone Subjective Subjective: The patient has abdominal pain only at the site of liver biopsy. She denies nausea, vomiting, fever, sweats, chills, bleeding, bruising, edema. She is thinking coherently. She has moved her bowels, and urinated. She believes she has been jaundiced. She states that her last IV drug use was approximately 2 months prior to presentation. Objective Vital Signs and I&Os Vital Signs Date Time Temp Pulse Resp B/P B/P Pulse O2 O2 Flow FiO2 Mean Ox Delivery Rate 11/27 1439 97.8 74 18 95/56 100 Room Air / 0605 98.2 54 20 96/58 95 Nasal Cannula / 2308 90/60 / 2249 100/60 / 2247 98.5 63 22 90/70 100 /03 1800 72 Intake & Output 11/27 1600 / 0400 11/26 1600 11/26 0400 / 1600 / 0400 Intake Total 700 360 500 605.1 3423 325.1 Output Total 400 Balance 700 360 500 605.1 3023 325.1 Intake, IV 125.1 2433 125.1 Intake, Oral 700 360 500 480 990 200 Output, Urine 400 Patient 112 lb 112 lb 107 lb Weight Weight Bed scale Measurement Method Physical Exam: Alert and oriented, normal cognition. No apparent distress. No skin lesion, rash, jaundice, stigmata of chronic liver disease. Sclera anicteric. No oropharyngeal lesion. Abdomen is soft and nondistended with normal bowel sounds ; there is no hepatosplenomegaly or mass. Extremities without edema. Pulses intact. No asterixis. Current Medications: Current Medications Sig/Ravinder Start time Last Medication Dose Route Stop Time Status Admin Clonazepam 0.25 MG TID 11/27 899 AC 11/27 PO 12/04 0859 1450 Clonazepam 0.5 MG BID 11/24 2100 DC 11/26 PO 11/26 2300 1253 Folic Acid 1 MG DAILY 11/23 09 AC 11/27 PO 0851 Heparin Sodium 5,000 UNIT Q8 11/22 1522 AC (Porcine) SC Lactulose 30 GM TID 11/26 1400 AC PO Multivitamins 1 TAB DAILY 11/23 899 AC 11/27 PO 0851 Nicotine 21 MG Q24 11/23 09 AC 11/27 TOP 0852 Oxycodone HCl 5 MG Q8P PRN 11/26 1430 AC 11/27 PO 0856 Thiamine HCl 100 MG DAILY 11/23 899 AC 11/27 PO 0851 Results Pertinent Lab Results: Laboratory Tests 11/27 11/26 11/26 0702 0621 0600 Chemistry Sodium (137 - 145 mmol/L) 141 142 Potassium (3.5 - 5.1 mmol/L) 4.0 3.6 Chloride (98 - 107 mmol/L) 105 107 Carbon Dioxide (22 - 30 mmol/L) 25 27 Anion Gap (5 - 16) 10 8 BUN (7 - 17 mg/dL) 11 9 Creatinine (0.5 - 1.0 mg/dL) 0.5 0.5 Estimated GFR (>60 ml/min) > 60 > 60 BUN/Creatinine Ratio (7 - 25 %) 22.0 18.0 Total Bilirubin (0.2 - 1.3 mg/dL) 2.1 H 2.5 H Direct Bilirubin (< 0.4 mg/dL) 1.3 H 1.9 H AST (14 - 36 U/L) 679 H 745 H ALT (9 - 52 U/L) 1223 H 1282 H Alkaline Phosphatase (<127 U/L) 108 108 Total Protein (6.3 - 8.2 g/dL) 6.1 L 5.9 L Albumin (3.5 - 5.0 g/dL) 3.6 3.3 L Coagulation PT (9.4 - 12.5 SEC) 12.5 12.9 H INR (0.90 - 1.19) 1.15 1.18 Hematology CBC w Diff NO MAN DIFF REQ WBC (4.8 - 10.8 /CUMM) 6.2 RBC (4.20 - 5.40 /CUMM) 4.30 Hgb (12.0 - 16.0 G/DL) 13.5 Hct (37 - 47 %) 40.7 MCV (81.0 - 99.0 FL) 94.8 MCH (27.0 - 31.0 PG) 31.5 H MCHC (33.0 - 37.0 G/DL) 33.3 RDW (11.5 - 14.5 %) 13.8 Plt Count (/CUMM) Gran % (42.2 - 75.2 %) 49.4 Lymphocytes % (20.5 - 51.1 %) 34.8 Monocytes % (1.7 - 9.3 %) 10.3 H Eosinophils % (0 - 5 %) 4.8 Basophils % (0.0 - 2.0 %) 0.7 Absolute Granulocytes (1.4 - 6.5 /CUMM) 3.1 Absolute Lymphocytes (1.2 - 3.4 /CUMM) 2.2 Absolute Monocytes (0.10 - 0.60 /CUMM) 0.6 Absolute Eosinophils (0.0 - 0.7 /CUMM) 0.3 Absolute Basophils (0.0 - 0.2 /CUMM) 0 Immunology Anti-Smooth Muscle Ab Pending Serology HIV 1&2 Ab Western Blot (NONREACTIVE) NONREACTIVE 11/25 11/25 11/25 11/25 1655 0600 0450 0240 Chemistry Sodium (137 - 145 mmol/L) 141 Potassium (3.5 - 5.1 mmol/L) 3.5 Chloride (98 - 107 mmol/L) 104 Carbon Dioxide (22 - 30 mmol/L) 26 Anion Gap (5 - 16) 11 BUN (7 - 17 mg/dL) 10 Creatinine (0.5 - 1.0 mg/dL) 0.4 L Estimated GFR (>60 ml/min) > 60 BUN/Creatinine Ratio (7 - 25 %) 25.0 Iron (37 - 170 ug/dL) 169 TIBC (265 - 497 ug/dL) 414 Ferritin (6.24 - 137 ng/mL) 227.0 H Total Bilirubin (0.2 - 1.3 mg/dL) 3.1 H Direct Bilirubin (< 0.4 mg/dL) 2.2 H AST (14 - 36 U/L) 799 H ALT (9 - 52 U/L) 1376 H Alkaline Phosphatase (<127 U/L) 116 Troponin I (< 0.11 ng/ml) < 0.01 Total Protein (6.3 - 8.2 g/dL) 6.1 L Albumin (3.5 - 5.0 g/dL) 3.6 Zwfta-1-Rutalnzybue (83 - 199 mg/dL) 171 Ceruloplasmin (18 - 53 mg/dL) 23 Coagulation PT (9.4 - 12.5 SEC) 14.1 H INR (0.90 - 1.19) 1.29 H Miscellaneous Ref Lab Test Result Pending Serology CMV IgG Ab Pending CMV IgM Ab Pending EBV Capsid Ag IgG Ab Pending EBV Capsid Ag IgM Ab Pending EBV Nuclear Ag IgG Ab Pending EBV Interpretation Pending HSV I IgG Ab Pending HSV II IgG Pending VZV IgG Antibody Pending VZV IgM Antibody Pending Toxicology Urine Opiates Screen (>2000 NG/ML) < 100 Methadone Screen (>300 NG/ML) < 40 Barbiturate Screen (>200 NG/ML) < 60 Ur Phencyclidine Scrn (>25 NG/ML) < 6.00 Amphetamines Screen (>1000 NG/ML) 101 U Benzodiazepines Scrn (>200 NG/ML) 127 Urine Cocaine Screen (>300 NG/ML) < 50 Urine Cannabis Screen (>50 NG/ML) > 80.00 H 11/25 11/25 0220 0144 Chemistry Sodium Cancelled Potassium Cancelled Chloride Cancelled Carbon Dioxide Cancelled Anion Gap Cancelled BUN Cancelled Creatinine Cancelled BUN/Creatinine Ratio Cancelled Lactic Acid (0.7 - 2.1 mmol/L) 0.7 Total Bilirubin Cancelled Direct Bilirubin Cancelled AST Cancelled ALT Cancelled Alkaline Phosphatase Cancelled Troponin I Cancelled Total Protein Cancelled Albumin Cancelled Hematology CBC w Diff MAN DIFF ORDERED WBC (4.8 - 10.8 /CUMM) 7.0 RBC (4.20 - 5.40 /CUMM) 4.73 Hgb (12.0 - 16.0 G/DL) 14.7 Hct (37 - 47 %) 44.8 MCV (81.0 - 99.0 FL) 94.7 MCH (27.0 - 31.0 PG) 31.2 H MCHC (33.0 - 37.0 G/DL) 32.9 L RDW (11.5 - 14.5 %) 13.8 Plt Count (130 - 400 /CUMM) 155 MPV (7.4 - 10.4 FL) 10.7 H Gran % (42.2 - 75.2 %) 51.3 Lymphocytes % (20.5 - 51.1 %) 33.5 Monocytes % (1.7 - 9.3 %) 10.3 H Eosinophils % (0 - 5 %) 3.3 Basophils % (0.0 - 2.0 %) 1.6 Absolute Granulocytes (1.4 - 6.5 /CUMM) 3.6 Segmented Neutrophils (42.2 - 75.2 %) 45 Absolute Lymphocytes (1.2 - 3.4 /CUMM) 2.4 Lymphocytes (20.5 - 51.1 %) 40 Monocytes (1.7 - 9.3 %) 10 H Absolute Monocytes (0.10 - 0.60 /CUMM) 0.7 H Eosinophils (0 - 5.0 %) 4 Absolute Eosinophils (0.0 - 0.7 /CUMM) 0.2 Basophils (0.0 - 2.0 %) 1 Absolute Basophils (0.0 - 0.2 /CUMM) 0.1 Platelet Estimate (ADEQUATE) ADEQUATE Hypochromic-Microcytic 1+ Poikilocytosis 1+ Ovalocytes 1+ Other Body Source Fld Total RBCs Counted (%) 100
[2017-11-27 23:22] VITALS: BP 100/62
[2017-11-27 23:29] VITALS: BP 100/62
[2017-11-28 07:05] VITALS: BP 102/76
[2017-11-28 08:00] VITALS: BP 102/76
[2017-11-28 08:24] LABS: PT 12.3 SEC (9.4-12.5)
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
[2017-11-28] MEDS ORDERED: CLONIDINE HCL0.1 MG PO (09:32)
[2017-12-01 09:00] LABS: CYTOMEGALOVIRUS ANTIBODY IGG <0.60 U/mL (()); CYTOMEGALOVIRUS ANTIBODY IGM <30.00 AU/mL (())
== END 2017-11-28 11:39 | DRG 279 ==
LOC: ERH 09:09 → ERHI 12:58 → CRI 12:58 → 1NO 12:58 → ENRESERV 13:30 → ENTRNSPT 14:01 → EDTRNSPTSTS 14:09 → EDTRNSPT 14:09 → CRI 14:41 → CMPTRNSPT 15:06 → CRI 11-23 07:40 → 1NO 11-23 21:15 → ENPENDDIS 11-28 09:27 → ENTRNSPT 11-28 11:06 → EDTRNSPT 11-28 11:14 → EDTRNSPTSTS 11-28 11:14 → EDTRNSPT 11-28 11:18 → 1NO 11-28 11:39 → CMPTRNSPT 11-28 11:42
PROVIDERS: Hospitalist; Internal Medicine; Internal Medicine Endocrinology, Diabetes & Metabolism; Internal Medicine Interventional Cardiology; Preventive Medicine Public Health & General Preventive Medicine; Student in an Organized Health Care Education/Training Program
PROC: 0FB23ZX Excision of Left Lobe Liver, Percutaneous Approach, Diagnostic (ICD-10-PCS; principal; 2017-11-26)
DX: K72.00 Acute and subacute hepatic failure without coma (principal); D68.9 Coagulation defect, unspecified; I95.9 Hypotension, unspecified; F11.23 Opioid dependence with withdrawal; B19.20 Unspecified viral hepatitis C without hepatic coma; F12.90 Cannabis use, unspecified, uncomplicated; F41.9 Anxiety disorder, unspecified; E80.6 Other disorders of bilirubin metabolism; F10.10 Alcohol abuse, uncomplicated; Z88.0 Allergy status to penicillin; F17.200 Nicotine dependence, unspecified, uncomplicated
CPT/HCPCS: 1NP; 1NSP; 82103; 83516; 86376; 86644; 86645; 86695; CCU; 36415; 36592; 74177; 80307; 81001; 82436; 87389; 93005; 93010; 96361; 96365; 99232; G0480; J0132; J1644; J1650; J3490; J7040; J7060

== ENCOUNTER 2018-04-12 19:13 | Emergency (ER) | payer OTHER ==
[~2018-04-12 19:13] MED LIST changes: +CLONAZEPAM0.25 M1 PO; +CLONIDINE HCL0.1 MG PO; +MOBIC15 M1 PO; +ZOFRAN4 M2 PO
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
[2018-04-12 21:51] VITALS: BP 121/76
[2018-04-12] MEDS ORDERED: HYDROCODON-ACE1 EAC2 PO (21:51)
== END 2018-04-12 22:01 ==
LOC: ERH 19:13
DX: T74.11XA Adult physical abuse, confirmed, initial encounter (principal); S62.304A Unspecified fracture of fourth metacarpal bone, right hand, initial encounter for closed fracture; S06.0X0A Concussion without loss of consciousness, initial encounter; S00.83XA Contusion of other part of head, initial encounter; Y04.0XXA Assault by unarmed brawl or fight, initial encounter; Y07.04 Female partner, perpetrator of maltreatment and neglect
CPT/HCPCS: 73130-RT; 81025